=== PATIENT | male | born 1970 | race Caucasian/White ===

== ENCOUNTER 2021-01-10 17:18 | Outpatient (CLI) | payer OTHER, SELFPAY | END 2021-01-10 17:19 | disposition home or self-care (01) | LOC: ANHCOVIDVC 17:18 | PROVIDERS: PCP Family Medicine | DX: Z23 Encounter for immunization (principal) | CPT/HCPCS: 0001A; 91300 ==

== ENCOUNTER 2021-01-31 17:11 | Outpatient (CLI) | payer OTHER, SELFPAY | END 2021-01-31 17:12 | disposition home or self-care (01) | LOC: ANHCOVIDVC 17:11 | PROVIDERS: PCP Family Medicine | DX: Z23 Encounter for immunization (principal) | CPT/HCPCS: 0002A; 91300 ==

== ENCOUNTER 2024-06-07 08:24 | Emergency (ER) | payer OTHER, SELFPAY ==
[2024-06-07 08:42] VITALS: BP 122/85; PULSE 75; RESP 16; TEMP 36.2; O2SAT 99
--- NOTE | 2024-06-07 09:05 | ED.BACK ---
HPI - Back Pain/Injury General Chief Complaint: Back Pain/Injury Stated Complaint: muscle spams Time Seen by Provider: 06/07/24 09:05 Source: patient, RN notes reviewed and old records reviewed Mode of arrival: ambulatory Limitations: no limitations History of Present Illness HPI Narrative: patient presents with complaints of pain to right thoracic back area. He reports that pain began about 6 days ago. He wakened from sleep. He complains of muscle spasms. He reports pain is now radiating into the right arm. He denies any neck pain. He denies all injury and trauma. He does retain full range of motion, but states this makes pain worse. He has been taking ibuprofen intermittently with poor relief. States pain is now beginning to affect his sleep. Related Data Home Medications Medication Instructions Recorded Confirmed dapagliflozin propanediol 5 mg 5 mg PO DAILY 06/07/24 06/07/24 tablet (Farxiga) ipratropium 20 mcg-albuterol 100 1 puff inhalation PRN PRN 06/07/24 06/07/24 mcg/actuation mist for inhalation Shortness Of Breath Or Wheezing (Combivent Respimat) metformin 500 mg tablet 500 mg PO BID 06/07/24 06/07/24 montelukast 10 mg tablet 10 mg PO HS 06/07/24 06/07/24 triamterene 37.5 1 cap PO DAILY 06/07/24 06/07/24 mg-hydrochlorothiazide 25 mg capsule valsartan 80 mg tablet 80 mg PO DAILY 06/07/24 06/07/24 Allergies Allergy/AdvReac Type Severity Reaction Status Date / Time Sulfa (Sulfonamide AdvReac Mild Hives Verified 06/07/24 08:38 Antibiotics) LACTOSE INTOLERANT AdvReac Intermediate Gastrointestinal Uncoded 06/07/24 08:38 Upset Review of Systems Review of Systems: All systems reviewed & are unremarkable except as noted in HPI and below Constitutional: Constitutional: Reports no additional constitutional complaints ENT: Reports system reviewed and no additional complaints, except as documented Cardiovascular: Cardiovascular: Reports no additional cardiovascular complaints Respiratory: Respiratory: Reports no additional respiratory complaints Gastrointestinal: Gastrointestinal: Reports no additional gastrointestinal complaints Musculoskeletal: Musculoskeletal: Reports no additional musculoskeletal complaints and Reports as per HPI Neurologic: Denies Sensory deficit (Neuro), Denies tingling and Denies paresthesias Exam Const: General: cooperative, no acute distress, alert and awake Orientation/consciousness: oriented to person, oriented to place and oriented to time HENMT: Head: normal to inspection Neck: Neck: full ROM Resp: Effort & Inspection: normal respiratory effort and able to speak in complete sentences Auscultation: clear to auscultation bilaterally, no crackles, no rales, no rhonchi and no wheezes Cardio: Palpation: normal PMI Rate: regular rate Rhythm: regular rhythm Heart sounds: S1 normal heart sound present and S2 normal heart sound present Back/Spine/Pelvis: Cervical Spine: cervical ROM normal Thoracic/Lumbar Spine: pain with thoraco-lumbar ROM, paraspinal muscle tenderness on the right in the mid thoracic, No thoracic spinal tenderness and No lumbar spinal tenderness Other: Palpable muscle spasm right thoracic Neuro: General: oriented to person, oriented to place and oriented to time Cranial nerves: Yes CN's II-XII intact bilaterally Psych: Appearance: grossly normal Thought process: Normal thought process present Insight: Good insight present (Psych) Judgement: Good judgement present (Psych) Course Course Level of Care: Express Care Visit Vital Signs Vital signs: Vital Signs Temperature 97.1 F L 06/07/24 08:42 Pulse Rate 75 06/07/24 08:42 Respiratory Rate 16 06/07/24 08:42 Blood Pressure 122/85 06/07/24 08:42 Pulse Oximetry 99 06/07/24 08:42 Oxygen Delivery Room Air 06/07/24 08:42 Temperature 97.1 F L 06/07/24 08:42 Pulse Rate 75 06/07/24 08:42 Respiratory Rate 16 06/07/24 08:42 Blood Pressure 122/85 08
== END 2024-06-07 09:15 | disposition home or self-care (01) ==
PROVIDERS: Emergency Provider Nurse Practitioner Family; PCP Family Medicine
DX: M54.6 Pain in thoracic spine (principal)
CPT/HCPCS: 99213; G0463

== ENCOUNTER 2025-01-14 11:28 | Emergency (ER) | payer OTHER, SELFPAY ==
--- NOTE | ~2025-01-14 | XR_ITS ---
HISTORY: fall today/lateral pain COMPARISON: None TECHNIQUE: 3 views of the left wrist were performed. FINDINGS: No acute fracture is identified. The carpal arcs are intact. Mild radiocarpal joint space narrowing with sclerosis of the distal radius is present. The remaining visualized joint spaces are otherwise preserved. No significant soft tissue swelling is noted. No radiopaque foreign body is identified. IMPRESSION: Degenerative disease, without acute fracture. Reviewed, dictated and finalized at location A.
--- NOTE | ~2025-01-14 | XR_ITS ---
HISTORY: fall this morning/ulnar side pain COMPARISON: None TECHNIQUE: 3 views of the right ankle were performed FINDINGS: No acute fracture or dislocation. No significant soft tissue swelling. The ankle mortise is preserved. Bone mineralization is age advanced. Ossification of the insertion of the Achilles tendon is noted IMPRESSION: Degenerative disease without acute fracture. Reviewed, dictated and finalized at location A.
--- OUTSIDE RECORDS SUMMARY | 2025-01-14 11:40 | XMS_ITS | Data Portability ---
Author Organization [facility] LISANDROConnie Address [address] [place] [address] Assessment No assessment recorded. Plan of Treatment Reminders Order Date Submit Date Provider Last Modified By Organization Details Last Modified Time Details Appointments ANY 15 2024 03:00P Priti Badillo, DO Not available Not available Not available Lab BMP, serum or plasma 2024 025 [email or web address] [employer] [facility], [facility] [address], [address], 12/18/2024 16:59:05 microalbu min/creat inine, mass ratio, urine 2024 025 [email or web address] [employer] [facility], [facility] [address], [address], 12/18/2024 16:59:05 HbA1c (hemoglob in A1c), blood 2024 025 [email or web address] [employer] [facility], [facility] [address], [address], 12/18/2024 16:59:05 CBC w/ auto diff 2024 025 [email or web address] [employer] [facility], [facility] [address], [address], 12/25/2024 13:07:19 HbA1c (hemoglob in A1c), blood 2024 025 [email or web address] [employer] [facility], [facility] [address], [address], 12/08/2024 09:52:00 BMP, serum or plasma 2024 025 [email or web address] [facility], [address] [address], [place], [address], 12/08/2024 09:52:00 microalbu min/creat inine, mass ratio, urine 2024 025 [email or web address] [facility], [address] [address], [place], [address], 12/08/2024 09:52:00 CBC w/ auto diff 2023 025 CHAZ [facility], [address], [address], 12/06/2024 07:10:38 HbA1c (hemoglob in A1c), blood 2023 025 [facility], [address], [address], 12/06/2024 07:10:40 BMP, serum or plasma 2023 025 [facility], [address], [address], 12/06/2024 07:10:37 hepatic function panel, serum 2023 024 [email or web address] [facility], [address], [address], 09/05/2024 10:58:07 CBC w/ auto diff 2023 024 [email or web address] [facility], [address], [address], 09/05/2024 10:57:53 HbA1c (hemoglob in A1c), blood 2023 [facility], [address], [address], 08/17/2024 10:24:44 BMP, serum or plasma 2023 024 CHAZ [facility], [address], [address], 08/17/2024 10:24:44 LOLLY (antinucl ear antibodie s) screen, ifa, serum 2023 024 [id number] [facility], [facility] [address], [address], 09/05/2024 10:57:21 rf (rheumato id factor), serum 2023 024 [email or web address] [facility], [facility] [address], [address], 09/05/2024 10:57:31 erythrocy te sedimenta tion rate by westergre n method 2023 024 [id number] [facility], [facility] [address], [address], 09/05/2024 10:58:17 uric acid, serum or plasma 2023 024 [id number] [facility], [facility] [address], [address], 09/05/2024 10:57:39 BMP, serum or plasma 2023 024 [facility], [facility] [address], [address], 04/23/2024 11:04:33 CBC 2023 024 [facility], [facility] [address], [address], 04/23/2024 11:04:34 lipid panel, serum 2023 024 [facility], [address] [facility] [address], [place], [address], 04/23/2024 11:04:32 TSH + free T4, serum 2023 024 [facility], [address] [facility] [address], [place], [address], 04/23/2024 11:04:33 hepatic function panel, serum 2023 024 [facility], [address] [facility] [address], [place], [address], 04/23/2024 11:04:34 vitamin D, 25-hydrox y, total, serum 2023 024 [facility], [address] [facility] [address], [place], [address], 04/23/2024 11:04:36 vitamin B12, serum 2023 024 [facility], [address] [facility] [address], [place], [address], 04/23/2024 11:04:35 testoster one, total, serum 2023 024 [facility], [address] [facility] [address], [place], [address], 04/23/2024 11:04:36 PSA, serum or plasma 2023 024 [facility], [address] [facility] [address], [place], [address], 04/23/2024 11:04:35 Referral gastroent erologist referral - colonosco py 2024 025 CHAZELDON Stokes MD, [address], [place], [address], 01/11/2025 12:10:18 Procedures None recorded. Surgeries None recorded. Imaging MRI, lumbar spine, w/wo contrast - pre and post contrast fat saturated sequence 2024 025 [facility] Patient Access Centralized Scheduling, Centralized Scheduling, [address] [facility] , [place], [address], 01/04/2025 12:02:22 XR, elbow, 3 or more view - right [address] [facility], [address], [place], [address], 01/05/2025 12:23:00 XR, chest, 2 view 2023 024 [facility], [address], [place], [address], 09/13/2024 21:17:11 electroca rdiogram, routine ECG, 12 leads min 2023 024 [facility], [address], [place], [address], 09/11/2024 20:47:11 CT, coronary calcium score [address] Scheduling, [address] [facility] [address], [place], [address], 09/11/2024 16:25:15 XR, lumbar spine 2023 024 [facility], [address], [place], [address], 09/12/2024 13:49:41 Medication Orders prednison e 20 mg tablet 2024 025 [facility]/Pharmacy #2713, [address], [place], [address], 12/18/2024 15:32:42 rosuvasta tin 5 mg tablet 2023 024 [facility]/Pharmacy #2713, [address], [place], [address], 08/14/2024 08:06:36 rosuvasta tin 5 mg tablet 2023 024 [facility], [address] [place] [address], [address], 08/14/2024 08:06:36 Combivent Respimat 20 mcg-100 mcg/actua tion solution for inhalatio n [address]/Pharmacy #2713, [address] , [place], [address], 03/29/2024 18:34:[address] 10 mg tablet 2023 024 [facility]Ph[facility]acy #2713, [address], [place], [address], 04/28/2024 03:23:[address] 10 mg tablet 2023 024 [email or web address], [address] [place] [address], [address], 03/29/2024 18:34:02 triamtere ne 37.5 mg-hydroc hlorothia zide 25 mg capsule 2023 024 [facility]/Ph[facility]acy #2713, [address], [place], [address], 04/28/2024 03:23:06 valsartan 80 mg tablet 2023 024 [facility]acy #2713, [address] , [place], [address], 04/28/2024 03:22:40 triamtere ne 37.5 mg-hydroc hlorothia zide 25 mg capsule 2023 024 [email or web address] [facility], [address] [place] [address], [address], 03/29/2024 18:34:02 valsartan 80 mg tablet 2023 024 [email or web address] [facility], [address] [place] [address], [address], 03/29/2024 18:34:02 Farxiga 5 mg tablet 2023 024 [email or web address] [facility], [address], [place], [address], 03/29/2024 18:34:02 metformin 500 mg tablet 2023 024 [facility]/Pharmacy #2713, [address], [place], [address], 04/28/2024 03:23:58 Farxiga 5 mg tablet 2023 024 [email or web address] [facility], [address] [place] [address], [address], 03/29/2024 18:34:02 metformin 500 mg tablet 2023 024 [facility], [address] [place] [address], [address], 03/29/2024 18:34:02 Patient TargetsNo targets recorded. Patient Instructions Encounter Date Encounter Id Patient Instructions Last Modified By Organization Details Last Modified Time 03/29/2024 [id number] A healthy lifestyle: care instructions [email or web address] Not available 03/29/2024 16:52:40 11/09/2024 [id number] A healthy lifestyle: care instructions [email or web address] Not available 11/09/2024 18:34:40 12/18/2024 [id number] A healthy lifestyle: care instructions [email or web address] Not available 12/18/2024 16:59:05 Reason for Referral [employer] Referral for Screening for malignant neoplasm of colon colonoscopy Referring Physician: Bennie Badillo, Family Medicine, Encounter Date: 12/18/2024 Results Created Date Observation Date Name Description Value Unit Range Abnormal Flag Note LastModifiedBy Organization Detail LastModifiedTime 04/18/20 24 04/23/2024 LIPID PANEL W/REF L DIREC T LDL, CARDI O IQ(R) cholesterol, total 136 mg/dL <200 Not Available [employer] [address] [address] [place], [address], 04/23/2024 11:04:32 04/18/20 24 04/23/2024 LIPID PANEL W/REF L DIREC T LDL, CARDI O IQ(R) HDL cholesterol 34 mg/dL >39 low Not Available [facility] [address] [address] [place], [address], 04/23/2024 11:04:32 04/18/20 24 04/23/2024 LIPID PANEL W/REF L DIREC T LDL, CARDI O IQ(R) triglyceride s 400 mg/dL <150 high If a non fasti ng speci men was colle cted, consi sharita repea t trigl yceri de testi ng on a fasti ng speci men if clini aiden indic ated. Chacorta vazquez et al. J of Clin. Lipid ol. 215; 9:129 -169. Not Available [facility] [facility] [address] [place], [address], 04/23/2024 11:04:32 04/18/20 24 04/23/2024 LIPID PANEL W/REF L DIREC T LDL, CARDI O IQ(R) LDL-choleste rol 62 mg/dL _(romana c) <100 LDL Pattie stero l not calcu lated . Trigl yceri de level s great er than 400 mg/dL inval idate calcu lated LDL resul ts. Jamarcus able range <100 mg/dL for prima ry preve ntion ; <70 mg/dL for patie nts with CHD or diabe tic patie nts with >= 2 CHD risk facto rs. LDL-C is now calcu lated using the [facility] Filao calcu latio n, which is a valid ated novel metho d provi ding petty r accur acy than the Fried margarita equat ion in the estim ation of LDL-C . Grace n SS et al. CRISTIN. 2013; 310(1 9): 2060- 2067 (http ://ed [place] [employer]/f aq/FA Q164) LDL-C is now calcu lated using the [employer] calcu latio n, which is a valid ated novel metho d provi ding petty r accur acy than the Fried margarita equat ion in the estim ation of LDL-C . Grace n SS et al. CRISTIN. 2013; 310(1 9): 2060- 2067 (http ://ed PublicVine on.[employer]Shield. com/f aq/FA Q164) Not Available [employer] [facility] [address] [place], [address], 04/23/2024 11:04:32 04/18/20 24 04/23/2024 LIPID PANEL W/REF L DIREC T LDL, CARDI O IQ(R) chol/HDLC ratio 4.0 calc <5.0 Not Available [employer] [facility] [address] [place], [address], 04/23/2024 11:04:32 04/18/20 24 04/23/2024 LIPID PANEL W/REF L DIREC T LDL, CARDI O IQ(R) non HDL cholesterol 102 mg/dL _(romana c) <130 For patie nts with diabe gina plus 1 major ASCVD risk facto r, treat ing to a non-H DL-C goal of <100 mg/dL (LDL- C of <70 mg/dL ) is consi dered a thera peuti c optio n. For patie nts with diabe gina plus 1 major ASCVD risk facto r, treat ing to a non-H DL-C goal of <100 mg/dL (LDL- C of <70 mg/dL ) is consi dered a thera peuti c optio n. Not Available [facility] [address], [address], 04/23/2024 11:04:32 04/18/20 24 04/23/2024 TSH+F REE T4 TSH 1.67 mIU/L 0.40-4 .50 normal Not Available [facility] [address], [address], 04/23/2024 11:04:33 04/18/20 24 04/23/2024 TSH+F REE T4 T4, free 1.1 NG/dL 0.8-1. 8 normal Not Available [facility] [address], [address], 04/23/2024 11:04:33 04/18/20 24 04/23/2024 BASIC METAB OLIC PANEL glucose 207 mg/dL 65-99 high Fasti ng refer ence inter emily For someo ne witho ut known diabe gina, a gluco se value >125 mg/dL indic ates that they may have diabe gina and this shoul d be confi rmed with a follo w-up test. Not Available [facility] [address], [address], 04/23/2024 11:04:33 04/18/20 24 04/23/2024 BASIC METAB OLIC PANEL urea nitrogen (BUN) 21 mg/dL 7-25 normal Not Available [facility] [address], [address], 04/23/2024 11:04:33 04/18/20 24 04/23/2024 BASIC METAB OLIC PANEL creatinine 0.85 mg/dL 0.70-1 .30 normal Not Available [facility] [address] [place], [address], 04/23/2024 11:04:33 04/18/20 24 04/23/2024 BASIC METAB OLIC PANEL eGFR 103 mL/mi n/1.7 3m2 > or = 60 normal Not Available [address] [address] [place], [address], 04/23/2024 11:04:33 04/18/20 24 04/23/2024 BASIC METAB OLIC PANEL BUN/creatini ne ratio SEE NOTE: (calc ) 6-22 Not Repor katina: BUN and Creat inine are withi n refer ence range . Not Available [address] [address] [place], [address], 04/23/2024 11:04:33 04/18/20 24 04/23/2024 BASIC METAB OLIC PANEL sodium 145 mmol/ L 135-14 6 normal Not Available [address] [address] [place], [address], 04/23/2024 11:04:33 04/18/20 24 04/23/2024 BASIC METAB OLIC PANEL potassium 4.5 mmol/ L 3.5-5. 3 normal Not Available [address] [address] [place], [address], 04/23/2024 11:04:33 04/18/20 24 04/23/2024 BASIC METAB OLIC PANEL chloride 109 mmol/ L 98-110 normal Not Available [address] [address] [place], [address], 04/23/2024 11:04:33 04/18/20 24 04/23/2024 BASIC METAB OLIC PANEL carbon dioxide 16 mmol/ L 20-32 low Not Available [address] [address] [place], [address], 04/23/2024 11:04:33 04/18/20 24 04/23/2024 BASIC METAB OLIC PANEL calcium 10.3 mg/dL 8.6-10 .3 normal Not Available [address], [address], 04/23/2024 11:04:33 04/18/20 24 04/23/2024 HEPAT IC FUNCT ION PANEL protein, total 7.2 g/dL 6.1-8. 1 normal Not Available [address], [address], 04/23/2024 11:04:34 04/18/20 24 04/23/2024 HEPAT IC FUNCT ION PANEL albumin 4.8 g/dL 3.6-5. 1 normal Not Available [address], [address], 04/23/2024 11:04:34 04/18/20 24 04/23/2024 HEPAT IC FUNCT ION PANEL globulin 2.4 g/dL_ (calc ) 1.9-3. 7 normal Not Available [address], [address], 04/23/2024 11:04:34 04/18/20 24 04/23/2024 HEPAT IC FUNCT ION PANEL albumin/glob ulin ratio 2.0 (calc ) 1.0-2. 5 normal Not Available [address], [address], 04/23/2024 11:04:34 04/18/20 24 04/23/2024 HEPAT IC FUNCT ION PANEL bilirubin, total 0.7 mg/dL 0.2-1. 2 normal Not Available [address], [address], 04/23/2024 11:04:34 04/18/20 24 04/23/2024 HEPAT IC FUNCT ION PANEL bilirubin, direct 0.1 mg/dL < or = 0.2 normal Not Available [address] [place], [address], 04/23/2024 11:04:34 04/18/20 24 04/23/2024 HEPAT IC FUNCT ION PANEL bilirubin, indirect 0.6 mg/dL _(romana c) 0.2-1. 2 normal Not Available [address], [address], 04/23/2024 11:04:34 04/18/20 24 04/23/2024 HEPAT IC FUNCT ION PANEL alkaline phosphatase 50 U/L 35-144 normal Not Available [facility] [address], [address], 04/23/2024 11:04:34 04/18/20 24 04/23/2024 HEPAT IC FUNCT ION PANEL AST 20 U/L 10-35 normal Not Available [address], [address], 04/23/2024 11:04:34 04/18/20 24 04/23/2024 HEPAT IC FUNCT ION PANEL ALT 27 U/L 9-46 normal Not Available [address], [address], 04/23/2024 11:04:34 04/18/20 24 04/23/2024 CBC (H/H, RBC, INDIC ES, WBC, PLT) white blood cell count 7.4 thous and/u L 3.8-10 .8 normal Not Available [address], [address], 04/23/2024 11:04:34 04/18/20 24 04/23/2024 CBC (H/H, RBC, INDIC ES, WBC, PLT) red blood cell count 5.66 melanie on/uL 4.20-5 .80 normal Not Available [address], [address], 04/23/2024 11:04:34 04/18/20 24 04/23/2024 CBC (H/H, RBC, INDIC ES, WBC, PLT) hemoglobin 16.5 g/dL 13.2-1 7.1 normal Not Available [address], [address], 04/23/2024 11:04:34 04/18/20 24 04/23/2024 CBC (H/H, RBC, INDIC ES, WBC, PLT) hematocrit 49.6 % 38.5-5 0.0 normal Not Available [address], [address], 04/23/2024 11:04:34 04/18/20 24 04/23/2024 CBC (H/H, RBC, INDIC ES, WBC, PLT) MCV 87.6 fL 80.0-1 00.0 normal Not Available [address], [address], 04/23/2024 11:04:34 04/18/20 24 04/23/2024 CBC (H/H, RBC, INDIC ES, WBC, PLT) MCH 29.2 pg 27.0-3 3.0 normal Not Available [address], [address], 04/23/2024 11:04:34 04/18/20 24 04/23/2024 CBC (H/H, RBC, INDIC ES, WBC, PLT) MCHC 33.3 g/dL 32.0-3 6.0 normal Not Available [address], [address], 04/23/2024 11:04:34 04/18/20 24 04/23/2024 CBC (H/H, RBC, INDIC ES, WBC, PLT) RDW 13.4 % 11.0-1 5.0 normal Not Available [address], [address], 04/23/2024 11:04:34 04/18/20 24 04/23/2024 CBC (H/H, RBC, INDIC ES, WBC, PLT) platelet count 234 thous and/u L 140-40 0 normal Not Available [facility] [address] [address] [place], [address], 04/23/2024 11:04:34 04/18/20 24 04/23/2024 CBC (H/H, RBC, INDIC ES, WBC, PLT) MPV 11.6 fL 7.5-12 .5 normal Not Available [facility] [address] [address] [place], [address], 04/23/2024 11:04:34 04/18/20 24 04/23/2024 VITAM IN B12 vitamin B12 698 pg/mL 200-11 00 normal Not Available [facility] [address], [address], 04/23/2024 11:04:35 04/18/20 24 04/23/2024 PSA, TOTAL PSA, total 0.44 NG/mL < or = 4.00 normal The total PSA value from this assay syste m is stand ardiz ed again st the WHO stand anders. The test resul t will be appro ximat edwin 20% lower when tl red to the equim olar- stand ardiz ed total PSA (Lewis man Coult er). Tl rison of seria l PSA resul ts shoul d be inter prete d with this fact in mind. This test was perfo rmed using the Sieme ns chemi lumin escen t metho d. Value s obtai tayler from diffe rent assay metho ds canno t be used inter seo eably . PSA level s, regar dless of value , shoul d not be inter prete d as absol muckleshoot evide nce of the prese nce or absen ce of disea se. Not Available [facility] [address] [address] [place], [address], 04/23/2024 11:04:35 04/18/20 24 04/23/2024 VITAM IN D,25- OH,TO ESDRAS,I A vitamin D,25-oh,tota l,ia 13 NG/mL 30-100 low Vitam in D Statu s 25-OH Vitam in D: Defic iency : <20 ng/mL Insuf ficie ncy: 20 - 29 ng/mL Optim al: > or = 30 ng/mL For 25-OH Vitam in D testi ng on patie nts on D2-crump pplem entat ion and patie nts for whom quant itati on of D2 and D3 fract ions is requi red, the [facility] Ass[facility] eD(TM ) 25-OH VIT D, (D2,D 3), LC/MS /MS is recom laverne d: order code 40296 (raúl ents >2yrs ). See Note 1 Note 1 For addit ional infor patricia may e refer to http: //[facility] women[facility] hospitalmounika sarmiento.Narciso stDia gnost ics.c om/fa q/FAQ 199 (This link is being provi ded for infor matio nal/ educa violeta l purpo ses only. ) Not Available [facility] [address] [place], [address], 04/23/2024 11:04:36 04/18/20 24 04/23/2024 TESTO STERO NE, TOTAL , MS testosterone , total, MS 377 NG/dL 250-11 00 Men with clini aiden signi fican t hypog onada l sympt oms and testo stero ne value s repea tedly in the range of the 200-3 00 ng/dL or less, may benef it from testo stero ne treat ment after adequ ate risk and benef its couns eling . For addit ional infor patricia may e refer to https ://ed ucati on.qu marguerite wisdomWhitepages. com/f aq/To Alon nelson LCMSM S (This link is being provi ded for infor matio nal/e ducat ional purpo ses only. ) (Note ) This test was devel oped and its ita tical perfo rmanc e raj cteri stics have been deter mined by [employer]. It has not been clear ed or appro morgan by the FDA. This assay has been valid ated pursu ant to the CLIA regul ation s and is used for clini romana purpo ses. F maxine cope n [address] [facility] [address] [place] [address] [phone] Daryn Underwood MD, PhD Not Available [facility] [address] [address] [place], [address], 04/23/2024 11:04:36 08/16/2008/17/2024 LIPID PANEL , STAND ANDERS cholesterol, total 127 mg/dL <200 normal Not Available [facility] [address] [address] [place], [address], 08/17/2024 08:40:11 08/16/2008/17/2024 LIPID PANEL , STAND ANDERS HDL cholesterol 34 mg/dL > or = 40 low Not Available [employer] [facility] [address] [address] [place], [address], 08/17/2024 08:40:11 08/16/2008/17/2024 LIPID PANEL , STAND ANDERS triglyceride s 394 mg/dL <150 high If a non-f astin g speci men was colle cted, consi sharita repea t trigl yceri de testi ng on a fasti ng speci men if clini aiden indic ated. Chacorta vazquez et al. J. of Clin. Lipid ol. 2015; 9:129 -169. Not Available [facility] [address] [address] [place], [address], 08/17/2024 08:40:11 08/16/2008/17/2024 LIPID PANEL , STAND ANDERS LDL-choleste rol 52 mg/dL _(romana c) normal Refer ence range : <100 Jamarcus able range <100 mg/dL for prima ry preve ntion ; <70 mg/dL for patie nts with CHD or diabe tic patie nts with > or = 2 CHD risk facto rs. LDL-C is now calcu lated using the Grace n-Hop kins anibalu raiza n, which is a valid ated novel toño hudson than the Fried margarita saurabhat ion in the estim ation of LDL-C . Grace sarmiento SS et al. CRISTIN. 2013; 310(1 9): 2061- 2068 (http ://ed ucati on.Qu estDi Adocias. com/f aq/FA Q164) Not Available [facility] [address] [address] [place], [address], 08/17/2024 08:40:11 08/16/2008/17/2024 LIPID PANEL , STAND ANDERS chol/HDLC ratio 3.7 (calc ) <5.0 normal Not Available [facility] [address] [address] [address], [place], [address], 08/17/2024 08:40:11 08/16/2008/17/2024 LIPID PANEL , STAND ANDERS non HDL cholesterol 93 mg/dL _(romana c) <130 normal For patie nts with diabe gina plus 1 major ASCVD risk facto r, treat ing to a non-H DL-C goal of <100 mg/dL (LDL- C of <70 mg/dL ) is consi dered a aleksa cinthya c optio n. Not Available [facility] [address] [address] [address] , [place], [address], 08/17/2024 08:40:11 08/16/2008/17/2024 BASIC METAB OLIC PANEL glucose 194 mg/dL 65-99 high Fasti ng refer ence inter emily For someo ne witho ut known diabe gina, a gluco se value >125 mg/dL indic ates that they may have diabe gina and this shoul d be confi rmed with a follo w-up test. Not Available [facility] [address] [address], [place], [address], 08/17/2024 08:40:13 08/16/2008/17/2024 BASIC METAB OLIC PANEL urea nitrogen (BUN) 21 mg/dL 7-25 normal Not Available [address] [address] [place], [address], 08/17/2024 08:40:13 08/16/2008/17/2024 BASIC METAB OLIC PANEL creatinine 0.73 mg/dL 0.70-1 .30 normal Not Available [facility] [address], [address], 08/17/2024 08:40:13 08/16/2008/17/2024 BASIC METAB OLIC PANEL eGFR 107 mL/mi n/1.7 3m2 > or = 60 normal Not Available [facility] [address] [address] [place], [address], 08/17/2024 08:40:13 08/16/2008/17/2024 BASIC METAB OLIC PANEL BUN/creatini ne ratio SEE NOTE: (calc ) 6-22 Not Repor katina: BUN and Creat inine are withi n refer ence range . Not Available [facility] [address] [address] [place], [address], 08/17/2024 08:40:13 08/16/2008/17/2024 BASIC METAB OLIC PANEL sodium 139 mmol/ L 135-14 6 normal Not Available [facility] [address] [address] [place], [address], 08/17/2024 08:40:13 08/16/2008/17/2024 BASIC METAB OLIC PANEL potassium 4.0 mmol/ L 3.5-5. 3 normal Not Available [facility] [address], [address], 08/17/2024 08:40:13 08/16/2008/17/2024 BASIC METAB OLIC PANEL chloride 104 mmol/ L 98-110 normal Not Available [facility] [address] [address] [place], [address], 08/17/2024 08:40:13 08/16/20 24 08/17/2024 BASIC METAB OLIC PANEL carbon dioxide 24 mmol/ L 20-32 normal Not Available [facility] [address] , [place], [address], 08/17/2024 08:40:13 08/16/2008/17/2024 BASIC METAB OLIC PANEL calcium 10.1 mg/dL 8.6-10 .3 normal Not Available [facility] [address] , [place], [address], 08/17/2024 08:40:13 08/16/2008/17/2024 HEMOG LOBIN A1C hemoglobin A1C 8.2 %_of_ total _HGB <5.7 high For someo ne witho ut known diabe gina, a hemog lobin A1c value of 6.5% or great er indic ates that they may have diabe gina and this shoul d be confi rmed with a follo w-up test. For someo ne with known diabe gina, a value <7% indic ates that their diabe gina is well contr olled and a value great er than or equal to 7% indic ates subop timal contr ol. A1c targe ts shoul d be indiv idual ized based on durat ion of diabe gina, age, comor bid condi tions , and other consi derat ions. Curre ntly, no conse nsus exist s regar ding use of hemog lobin A1c for diagn osis of diabe igna for child william. Not Available [facility] [address] , [place], [address], 08/17/2024 08:40:14 12/05/19 25 12/06/2024 BASIC METAB OLIC PANEL glucose 145 mg/dL 65-99 high Fasti ng refer ence inter emily For someo ne witho ut known diabe gina, a gluco se value >125 mg/dL indic ates that they may have diabe gina and this shoul d be confi rmed with a follo w-up test. Not Available [facility] [address], [place], [address], 12/06/2024 07:10:37 12/05/19 25 12/06/2024 BASIC METAB OLIC PANEL urea nitrogen (BUN) 21 mg/dL 7-25 normal Not Available [facility] [place] [address] [address] [place], [address], 12/06/2024 07:10:37 12/05/19 25 12/06/2024 BASIC METAB OLIC PANEL creatinine 0.78 mg/dL 0.70-1 .30 normal Not Available [facility] [address] [address] [place], [address], 12/06/2024 07:10:37 12/05/19 25 12/06/2024 BASIC METAB OLIC PANEL eGFR 105 mL/mi n/1.7 3m2 > or = 60 normal Not Available [facility] [place] [address], [place], [address], 12/06/2024 07:10:37 12/05/1912/06/2024 BASIC METAB OLIC PANEL BUN/creatini ne ratio SEE NOTE: (calc ) 6-22 Not Repor katina: BUN and Creat inine are withi n refer ence range . Not Available [facility] [place] [address] [place], [address], 12/06/2024 07:10:37 12/05/19 25 12/06/2024 BASIC METAB OLIC PANEL sodium 139 mmol/ L 135-14 6 normal Not Available [facility] [place] [address] [place], [address], 12/06/2024 07:10:37 12/05/19 25 12/06/2024 BASIC METAB OLIC PANEL potassium 4.1 mmol/ L 3.5-5. 3 normal Not Available [facility] [address] [place], [address], 12/06/2024 07:10:37 12/05/19 25 12/06/2024 BASIC METAB OLIC PANEL chloride 101 mmol/ L 98-110 normal Not Available [address], [address], 12/06/2024 07:10:37 12/05/19 25 12/06/2024 BASIC METAB OLIC PANEL carbon dioxide 25 mmol/ L 20-32 normal Not Available [address], [address], 12/06/2024 07:10:37 12/05/19 25 12/06/2024 BASIC METAB OLIC PANEL calcium 10.4 mg/dL 8.6-10 .3 high Not Available [address], [address], 12/06/2024 07:10:37 12/05/19 25 12/06/2024 CBC (INCL UDES DIFF/ PLT) white blood cell count 6.7 thous and/u L 3.8-10 .8 normal Not Available [address], [address], 12/06/2024 07:10:38 12/05/19 25 12/06/2024 CBC (INCL UDES DIFF/ PLT) red blood cell count 5.81 melanie on/uL 4.20-5 .80 high Not Available [address], [address], 12/06/2024 07:10:38 12/05/19 25 12/06/2024 CBC (INCL UDES DIFF/ PLT) hemoglobin 17.0 g/dL 13.2-1 7.1 normal Not Available [address], [address], 12/06/2024 07:10:38 12/05/19 25 12/06/2024 CBC (INCL UDES DIFF/ PLT) hematocrit 51.7 % 38.5-5 0.0 high Not Available [facility] [address], [address], 12/06/2024 07:10:38 12/05/19 25 12/06/2024 CBC (INCL UDES DIFF/ PLT) MCV 89.0 fL 80.0-1 00.0 normal Not Available [facility] [address], [address], 12/06/2024 07:10:38 12/05/1912/06/2024 CBC (INCL UDES DIFF/ PLT) MCH 29.3 pg 27.0-3 3.0 normal Not Available [facility] [address], [address], 12/06/2024 07:10:38 12/05/19 25 12/06/2024 CBC (INCL UDES DIFF/ PLT) MCHC 32.9 g/dL 32.0-3 6.0 normal For adult s, a sligh t decre ase in the calcu lated MCHC value (in the range of 30 to 32 g/dL) is most likel y not clini aiden signi colt t; kenneth er, it shoul d be inter prete d with cauti on in [facility] with other red cell karolyn eters and the patie nt's clini romana condi tion. Not Available [facility] [address], [address], 12/06/2024 07:10:38 12/05/19 25 12/06/2024 CBC (INCL UDES DIFF/ PLT) RDW 13.3 % 11.0-1 5.0 normal Not Available [facility] [address], [address], 12/06/2024 07:10:38 12/05/19 25 12/06/2024 CBC (INCL UDES DIFF/ PLT) platelet count 244 thous and/u L 140-40 0 normal Not Available [facility] [address], [address], 12/06/2024 07:10:38 12/05/19 25 12/06/2024 CBC (INCL UDES DIFF/ PLT) MPV 11.9 fL 7.5-12 .5 normal Not Available [address], [address], 12/06/2024 07:10:38 12/05/19 25 12/06/2024 CBC (INCL UDES DIFF/ PLT) absolute neutrophils 3243 cells /uL 1500-7 800 normal Not Available [address], [address], 12/06/2024 07:10:38 12/05/19 25 12/06/2024 CBC (INCL UDES DIFF/ PLT) absolute lymphocytes 2667 cells /uL 850-39 00 normal Not Available [address], [address], 12/06/2024 07:10:38 12/05/19 25 12/06/2024 CBC (INCL UDES DIFF/ PLT) absolute monocytes 543 cells /uL 200-95 0 normal Not Available [address], [address], 12/06/2024 07:10:38 12/05/19 25 12/06/2024 CBC (INCL UDES DIFF/ PLT) absolute eosinophils 161 cells /uL 15-500 normal Not Available [address], [address], 12/06/2024 07:10:38 12/05/19 25 12/06/2024 CBC (INCL UDES DIFF/ PLT) absolute basophils 87 cells /uL 0-200 normal Not Available [address], [address], 12/06/2024 07:10:38 12/05/19 25 12/06/2024 CBC (INCL UDES DIFF/ PLT) neutrophils 48.4 % normal Not Available [address] [place], [address], 12/06/2024 07:10:38 12/05/19 25 12/06/2024 CBC (INCL UDES DIFF/ PLT) lymphocytes 39.8 % normal Not Available [facility] [address], [address], 12/06/2024 07:10:38 12/05/1912/06/2024 CBC (INCL UDES DIFF/ PLT) monocytes 8.1 % normal Not Available [facility] [address], [address], 12/06/2024 07:10:38 12/05/1912/06/2024 CBC (INCL UDES DIFF/ PLT) eosinophils 2.4 % normal Not Available [facility] [address], [address], 12/06/2024 07:10:38 12/05/19 25 12/06/2024 CBC (INCL UDES DIFF/ PLT) basophils 1.3 % normal Not Available [facility] [address], [address], 12/06/2024 07:10:38 12/05/1912/06/2024 HEMOG LOBIN A1C hemoglobin A1C 7.2 %_of_ total _HGB <5.7 high For someo ne witho ut known diabe gina, a hemog lobin A1c value of 6.5% or great er indic ates that they may have diabe gina and this shoul d be confi rmed with a follo w-up test. For someo ne with known diabe gina, a value <7% indic ates that their diabe gina is well contr olled and a value great er than or equal to 7% indic ates subop timal contr ol. A1c targe ts shoul d be indiv idual ized based on durat ion of diabe gina, age, comor bid condi tions , and other consi derat ions. Curre ntly, no conse nsus exist s regar ding use of hemog lobin A1c for diagn osis of diabe gina for child william. Not Available [facility] [address] [place], [address], 12/06/2024 07:10:39 09/11/20 24 09/11/2024 elect enriqueta hernadezgr am, routi ne ECG, 12 leads min No observ ation record ed. [facility] [address] [place], [address], 10/26/2024 14:47:41 09/12/20 24 09/12/2024 XR, lumba r spine No observ ation record ed. [address], [address], 10/26/2024 14:47:41 09/13/20 24 09/13/2024 XR, chest , 2 view No observ ation record ed. [address], [address], 10/19/2024 10:12:53 12/11/19 25 12/08/2024 MRI, lumba r spine , w/o contr ast No observ ation record ed. [facility] [address], [address], 12/18/2024 15:33:06 01/05/20 25 01/04/2025 MRI, lumba r spine , w/wo contr ast No observ ation record ed. [facility] [address], [address], 01/11/2025 17:12:24 Result Notes None recorded. Problems Name Problem SNOMED Code Status Onset Date Resolution Date Notes Provider Name and Address Organization Details Recorded Time Chronic low back pain 306354377 Active 2023 Bennie Badillo DO Attn: Torriein g,[address] [facility], [place], [address], [place] - [facility] 4 16:53:36 Dyslipidemi a 626696263 Active 2023 Bennie Badillo DO Attn: Torrielukasz jansen,[address] [place], [place], [address] [place] [address], [place] [facility] 4 16:53:37 Chronic insomnia 758174779 Active 2023 Bennie Badillo DO Attn: Kathy inderjit,[address] [place], [place], [address] [place] [address], [place] [facility] 4 16:53:39 Seasonal allergy 745354346 Active 2023 Bennie Badillo DO Attn: Kathy inderjit,[address] [place], [place], [address] [place] [address], [place] [facility] 4 16:53:40 Type 2 diabetes mellitus without complicatio n 802776650 Active 2023 Bennie Badillo DO Attn: Kathy inderjit,[address] [place], [address] [place] [address], [place] [facility] 4 16:53:41 Obesity 385173097 Active 2023 Bennie Badillo DO Attn: Kathy inderjit,[address] [place], [address] [place] [address], [place] [facility] 4 16:53:43 Obstructive sleep apnea syndrome 87688578 Active 2023 Bennie Badillo DO Attn: Kathy inderjit,[address] [place], [place], [address] [place] [address], [place] [facility] 4 16:53:44 Essential hypertensio n 61382193 Active 2023 Bennie Badillo DO Attn: Kathy jansen,[address] [place], [address] [place] [address], [place] [facility] 4 16:53:45 Multiple joint pain 75633289 Active 2023 Bennie Badillo DO Attn: Kathy jansen,[address] [place], [address], [place] [facility] 4 08:16:52 Pain of right elbow joint 6553074793790 9109 Active 2024 Bennie Badillo DO Attn: Kathy jansen,[address], [place], [address], [place] [facility] 5 16:31:40 Problem Notes None recorded. Procedures Surgical History None recorded. Imaging Results Imaging Date Name Status LastModified by Organiz ation Details LastModified Time 09/11/2024 electrocardio gram, routine ECG, 12 leads min completed [facility] [address] [place], [address], 10/26/2024 14:47:41 09/12/2024 XR, lumbar spine completed [address], [address], 10/26/2024 14:47:41 09/13/2024 XR, chest, 2 view completed [address], [address], 10/19/2024 10:12:53 12/08/2024 MRI, lumbar spine, w/o contrast completed [facility] [address] [place], [address], 12/18/2024 15:33:06 01/04/2025 MRI, lumbar spine, w/wo contrast active [facility] ([facility] [address] [place], [address], 01/11/2025 17:12:24 Procedure Notes None recorded. Medical Equipment None Reported. Allergies Allergen ID Allergen Name Allergen Category Reaction Reaction Severity Criticality Documentation Date Start Date Code Code System Note Provider Name and Address Organization Details Recorded Time 933903 Galactose -alpha-1, 3 galactose (substanc e) food,medi cation Not available Not available Not available 03/29/2024 47365 8006 SNOMED Not Available Not Available Not Available 387297 Substance with sulfonami de structure and antibacte rial mechanism of action (substanc e) medicatio n rash mild high 09/11/2024 47524 8003 SNOMED Not Available Not Available Not Available 248589 cow milk allergeni c extract food,medi cation Not available Not available low 12/18/20242018 01542 5 RxNorm GI Upset unrec ogniz ed react ion (text : Stoma ch upset , code: 84561 [id number]) (from exter nal sourc e) Not Available Not Available Not Available Medications Name Sig Start Date Stop Date Status Note LastModified by Organization Details LastModified Time cyclobenzap rine 10 mg tablet TAKE 1 TABLET BY MOUTH TWICE A DAY NEEDED FOR MUSCLE SPASMS 03/29 completed Not Available Not Available Not Available methocarbam ol 500 mg tablet TAKE 1 TABLET BY MOUTH THREE TIMES A DAY active Not Available Not Available No t Available metformin 500 mg tablet TAKE 1 TABLET BY MOUTH TWICE A DAY active Not Available Not Available No t Available prednisone 20 mg tablet TAKE 1 TABLET BY MOUTH EVERY DAY FOR 5 DAYS 12/18 completed Not Available Not Available Not Available valsartan 80 mg tablet TAKE 1 TABLET BY MOUTH EVERY DAY active Not Available Not Available No t Available triamterene 37.5 mg-hydrochl orothiazide 25 mg capsule TAKE 1 CAPSULE BY MOUTH EVERY DAY active Not Available Not Available No t Available baclofen 10 mg tablet TAKE 1 TABLET BY MOUTH THREE TIMES A DAY NEEDED FOR MUSCLE SPASMS 03/29 completed Not Available Not Available Not Available prednisone 50 mg tablet TAKE 1 TABLET BY MOUTH EVERY DAY 12/18 completed Not Available Not Available Not Available montelukast 10 mg tablet TAKE 1 TABLET BY MOUTH EVERY DAY active Not Available Not Available No t Available Longs Adult Low Strength ASA 81 mg tablet,dorian yed release Take 1 tablet every day by oral route. active Not Available Not Available No t Available naproxen 500 mg tablet TAKE 1 TABLET BY MOUTH TWICE A DAY WITH MEALS 03/29 completed Not Available Not Available Not Available rosuvastati n 5 mg tablet TAKE 1 TABLET BY MOUTH EVERY DAY FOR 30 DAYS 08/14 completed Not Available Not Available Not Available rosuvastati n 10 mg tablet Take 1 tablet every day by oral route. active Not Available Not Available No t Available Combivent Respimat 20 mcg-100 mcg/actuati on solution for inhalation INHALE 1 PUFF 4 TIMES A DAY BY INHALATIO N ROUTE NEEDED. active Not Available Not Available No t Available Farxiga 5 mg tablet TAKE 1 TABLET BY MOUTH EVERY DAY active Not Available Not Available No t Available Vitals Date Recorded Body weight Body mass index (BMI) Body height Oxygen saturation Oxygen saturation in Arterial blood by Pulse oximetry Heart rate Provider Name and Address Organization Details Last Updated DateTime 4 264611. 87 g 36.4 kg/m2 175.26 cm 98 % 98 % 86 /min Homa Steele MA [facility] 16:38:22 Date Recorded Systolic blood pressure Diastolic blood pressure Provider Name and Address Organization Details Last Updated DateTime 03/29/2024 126 mm[Hg] 82 mm[Hg] Bennie Badillo DO Attn: Accounting,[address] [place], [address], [facility] 03/29/2024 16:57:18 Date Recorded Body height Body mass index (BMI) Body weight Provider Name and Address Organization Details Last Updated DateTime 08/14/2024 175.26 cm 35.7 kg/m2 867807.21 g Marylu Gaxiola MA [facility] 08/14/2024 08:06:09 Date Recorded Systolic blood pressure Diastolic blood pressure Provider Name and Address Organization Details Last Updated DateTime 08/14/2024 140 mm[Hg] 86 mm[Hg] Bennie Badillo DO Attn: Accounting,[address] [place], [address], [facility] 08/14/2024 08:18:33 Date Recorded Body height Oxygen saturation Oxygen saturation in Arterial blood by Pulse oximetry Heart rate Body mass index (BMI) Body weight Provider Name and Address Organization Details Last Updated DateTime 175.26 cm 97 % 97 % 85 /min 35.1 kg/m2 782291. 49 g Jazz Appiah MA [facility] 14:37:27 Date Recorded Systolic blood pressure Diastolic blood pressure Provider Name and Address Organization Details Last Updated DateTime 09/11/2024 132 mm[Hg] 82 mm[Hg] Bennie Badillo DO Attn: Accounting,[address] [place], [address], [facility] 09/11/2024 15:27:22 Date Recorded Body height Body mass index (BMI) Body weight Provider Name and Address Organization Details Last Updated DateTime 11/09/2024 175.26 cm 35.6 kg/m2 920045.76 g Claribel Ghosh MA [facility] 11/09/2024 15:51:14 Date Recorded Systolic blood pressure Diastolic blood pressure Provider Name and Address Organization Details Last Updated DateTime 11/09/2024 136 mm[Hg] 82 mm[Hg] Bennie Badillo DO Attn: Accounting,[address] [place], [address], [facility] 11/09/2024 16:28:17 Date Recorded Body height Body mass index (BMI) Body weight Provider Name and Address Organization Details Last Updated DateTime 12/18/2024 175.26 cm 35.5 kg/m2 215152.57 g Marylu Gaxiola MA [facility] 12/18/2024 15:32:03 Date Recorded Systolic blood pressure Diastolic blood pressure Provider Name and Address Organization Details Last Updated DateTime 12/18/2024 126 mm[Hg] 76 mm[Hg] Bennie Badillo DO Attn: Accounting[address] [place], [address], [facility] 12/18/2024 16:29:35 Social History Question Answer Notes LastModified by Organizat ion Details LastModified Time Tobacco Smoking Status Never Smoker Homa Steele MA [facility], [facility] 03/29/2024 16:34:50 What Is Your Level Of Alcohol Consumption? None Information not available 03/29/2024 What Is Your Level Of Caffeine Consumption? None Information not available 03/29/2024 What Was The Date Of Your Most Recent Tobacco Screening? 11/09/2024 [email or web address] Information not available 11/09/2024 Do You Use Any Illicit Or Recreational Drugs? No Information not available 03/29/2024 Has Tobacco Cessation Counseling Been Provided? No Information not available 03/29/2024 Do You Or Have You Ever Used Any Other Forms Of Tobacco Or Nicotine? No Information not available 03/29/2024 Sex: Unknown Functional Status None recorded. Mental Status None recorded. Family History Relationship Description Onset Age of this Age Resolved Age Notes LastModified by Organization Details LastModified Time Mother Diabetes mellitus [email or web address] Not available 2023 16:34:23 Mother Hypertensive disorder [email or web address] Not available 2023 16:34:31 Mother Hypercalcemi a [email or web address] Not available 15:51:27 Medical History Condition Response Coronary Artery Disease N Other N High Blood Pressure Y Atrial Fibrillation N Kidney or Bladder Problems N Thyroid Problems N Blood Clots N COPD N Depression N GI Problems N Skin Problems N Eating Disorder N Anemia N Heart Attack ([place]) N Anxiety Disorder N Diabetes Y Muscle, Joint, or Bone Problems N Arthritis N Seizures/Epilepsy N Acid Reflux (GERD) N Cancer N Stroke N Asthma Y Allergies Y ADHD N Substance Abuse N High Cholesterol N Hepatitis N Liver Disease N Schizophrenia N Headaches Y Heart Failure N Osteoporosis N Past Encounters Encounter ID Performer Location Encounter Start Date Encounter Closed Date Diagnosis/Indication Diagnosis SNOMED-CT Code Diagnosis ICD10 Code Diagnosis Note [id number] Rosa Maria Elliott RN [facility] [place] [address] [place] [address] 03/29/2024 15:55:59 03/30/2024 08:04:56 Adult health examination 800803599 Z00.00 Essential hypertension 60909573 I10 chronic conditiona t goaldyazid e 37.5/25 mgvalsarta n 80 mg daily Obstructiv e sleep apnea syndrome 28147777 G47.33 cpapdoing well Obesity 697625065 E66.9 chronic conditionn ot at [facility] y dietweight loss Type 2 otoniel betes mellitus without complication 230270252 E11.9 chronic conditiona sa 81 mg dailymetfo rmin 500 mg Seasonal allergy 3734421 04 J30.2 chronic conditiona t goalmontel ukast 10 mg Chronic insomnia 0356999 04 F51.04 chronic conditiona t goal Dyslipidemia 858602062 E 78.5 chronic conditiona t goalrosuva statin 5 mg Chronic low back pain 27 2127932 M54.50 check x ray ls spine Screening for malignant neoplasm of prostate 540933535 Z12.5 [id number] Bennie Badillo DO [facility] - [employer] [place] [address] [address] 08/14/2024 08:01:07 08/14/2024 08:59:58 Multiple joint pain 46255250 M25.50 anased rateuric acidRFcbcc hem 7ekgcxrwil l order a ct coronary artery ct screenfath er [place] 64 10 years ago Dyslipidemia 540638633 E 78.5 chronic conditiona t goalrosuva statin 5 mg Essential hypertension 44649685 I10 chronic conditionw ill monitor bpdyazide 37.5/25 mgvalsarta n 80 mg daily Obesity 068164097 E66.9 chronic conditionn ot at [facility] y dietweight loss Type 2 otoniel betes mellitus without complication 691915014 E11.9 chronic conditiona sa 81 mg dailymetfo rmin 500 mgorder a a1c Family his tory of Cardiovascular disease 502733762 Z82.49 [id number] Bennie Badillo DO [facility] [employer] - [employer] [place] [address] [address] 09/11/2024 14:26:39 09/11/2024 15:31:57 Chronic insomnia 163405474 F51.04 chronic conditiona t goal Dyslipidemia 409618335 E 78.5 chronic conditiona t goalrosuva statin 5 mg Essential hypertension 46647348 I10 chronic conditionw ill monitor bpdyazide 37.5/25 mgvalsarta n 80 mg daily Obesity 900235043 E66.9 chronic conditionn ot at [facility] y dietweight loss Type 2 otoniel betes mellitus without complication 499666207 E11.9 chronic conditiona sa 81 mg dailymetfo rmin 500 mgorder a a1c [id number] Bennie Badillo DO [facility] - [place] [address] [address] 11/09/2024 15:00:13 11/14/2024 13:02:00 Chronic insomnia 471357422 F51.04 chronic conditiona t goal Chronic low back pain 27 3876627 M54.50 check x ray ls spine Dyslipidemia 019205420 E 78.5 chronic conditiona t goalrosuva statin 5 mg Essential hypertension 94930847 I10 chronic conditionw ill monitor bpdyazide 37.5/25 mgvalsarta n 80 mg daily Obesity 523015425 E66.9 chronic conditionn ot at [facility] y dietweight loss Obstructiv e sleep apnea syndrome 65380715 G47.33 cpapdoing well Type 2 otoniel betes mellitus without complication 431872420 E11.9 chronic conditiona sa 81 mg dailymetfo rmin 500 mgorder a a1c Pain of ri ght elbow joint 2306537344 9245930 M25.521 lifted a boxelbow hurting sincex rayprednis one 20 mg daily 5 daysupdate 1 weektender lateral elbowno edema or erythema [id number] Bennie Badillo, DO [facility] [place] [address] [facility] [address] [place] [address] 12/18/2024 15:20:10 12/19/2024 11:36:19 Chronic low back pain 261325120 M54.50 check x ray ls spine had a mriwill order a pre and post contrast mri using fat saturated sequrence Chronic insomnia 3506826 04 F51.04 chronic conditiona t goal Essential hypertension 89835388 I10 chronic conditionw ill monitor bpdyazide 37.5/25 mgvalsarta n 80 mg daily Obesity 802457513 E66.9 chronic conditionn ot at [facility] y dietweight loss Type 2 otoniel betes mellitus without complication 810866308 E11.9 chronic conditiona sa 81 mg dailymetfo rmin 500 mga1c is 7.1 Morbid obesity 070468635 E66.01 Screening for malignant neoplasm of colon 304142395 Z12.11 Health Concerns Section Related Observation LastModified by Organization Detai ls LastModified Time None Recorded Concern Status LastModified by Organization Details LastModified Time None Recorded Advance Directives Directive None Recorded Payers Encounter Date Sequence Insurance Name Policy Number Policy Kaur Covered Member ID Kaur Member ID Guarantor Name 03/29/2024 1 [employer] [id number] Ziyad C Boyd [id number] Ziyad Boyd 08/14/2024 1 [employer] [id number] Ziyad C Boyd [id number] Ziyad Boyd 09/11/2024 1 [employer] [id number] Ziyad C Boyd [id number] Ziyad Boyd 11/09/2024 1 [employer] [id number] Ziyad C Boyd [id number] Ziyad Boyd 12/18/2024 1 [employer] [id number] Ziyad C Boyd [id number] Ziyad Boyd Notes Date Note Type Note Provider Name and Address Organization Details Recorded Time 03/29/2024 text/html establish care Rosa Maria Elliott RN null, [place] - [facility] 03/29/2024 18:07:32 08/14/2024 text/html routine 4 month checklabs reviewedhad a recent uri has recently had episodes of joints hurtinghas had 3-4 episodes this yearhas recently started feeling better had chillshad sweats Bennie Badillo DO Attn: Account[address] [place], [address], [facility] 08/14/2024 08:58:15 09/11/2024 text/html follow upchanged dietstopped caffeine Bennie Badillo DO Attn: Accounting[address] [place], [address], [place] [facility] 09/11/2024 18:36:43 11/09/2024 text/html routine follow updoing okright elbow Bennie Badillo DO Attn: Accounting[address] [place], [address], [place] [facility] 11/09/2024 19:00:28 12/18/2024 text/html routine 3 month follow upfollow up elbowstill with a little painmuch better Bennie Badillo DO Attn: Accounting,[address] [place], [id number], [place] [facility] 12/18/2024 17:56:50
--- OUTSIDE RECORDS SUMMARY | 2025-01-14 11:41 | XMS_ITS | Clinical Summary ---
Author Organization [facility] Office Center Address [address] [place] [address] Care Team Providers Care Extension Work Instructor Name Role Phone Bennie Badillo DO Primary Care Provider + Allergies Active Allergy Reactions Criticality Noted Date Comments 1 Alpha-Gal Unknown Dairy To lerance (Xdkdpldbo-Qozyp-1,3-Galactose) Unknown 01/12/2023 Milk Stomach upset Low 02/16/2019 GI Upset Sulfa (Sulfonamide Antibiotics) Rash Medium 01/24 Medications aspirin 325 mg tabletIndicatio ns:Chronic pain of right ankle Take 1 tablet (325 mg total) by mouth 2 (two) times a day 84 tablet 05/25/2022 Active valsartan (DIOVAN) 80 mg tablet Take 1 tablet (80 mg total) by mouth daily 90 tablet 3 03/29/2023 Active triamterene-hyd roCHLOROthiazid e 37.5-25 mg per tablet/capsule Take 1 tablet/capsu le by mouth every morning 90 capsule 3 03/29/2023 Active rosuvastatin (CRESTOR) 5 mg tablet Take 1 tablet (5 mg total) by mouth daily 90 tablet 3 03/29/2023 Active montelukast (SINGULAIR) 10 mg tabletIndicatio ns:Chronic rhinitis Take 1 tablet (10 mg total) by mouth nightly 90 tablet 3 03/29/2023 Active metFORMIN (GLUCOPHAGE) 500 mg tablet 1 bid 180 tablet 3 03/29/2023 Active dapagliflozin (FARXIGA) 5 mg tablet Take 1 tablet (5 mg total) by mouth daily 90 tablet 3 03/29/2023 Active HYDROcodone-malissa taminophen (NORCO) 5-325 mg per tabletIndicatio ns:Pain Take 1 tablet by mouth every 6 (six) hours as needed for pain 8 tablet 04/04/2023 Active naproxen (NAPROSYN) 500 mg tablet Take 1 tablet (500 mg total) by mouth 2 (two) times a day with meals 30 tablet 04/04/2023 Active baclofen (LIORESAL) 10 mg tabletIndicatio ns:Fall, initial encounter,Rib pain on left side Take 1 tablet (10 mg total) by mouth 3 (three) times a day as needed for muscle spasms 30 tablet 09/29/2023 Active Active Problems Problem Noted Date Diagnosed Date Nonsmoker 08/18/2023 Non-seasonal allergic rhinitis due to pollen DM (diabetes mellitus) 03/29/2023 Assessment & Plan (03/29/2023 1:14 PM CDT): a1c is 8.3 Recheck lab in 3 months Chronic condition Not at goal Skin lesion 03/29/2023 Assessment & Plan (03/29/2023 1:26 PM CDT): Chin and index finger Refer to derm 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 09/16/2022 Assessment & Plan (09/16/2022 4:58 PM GENERAL LOT ATTENDANT): See ENT Severe obesity (BMI 35.0-39.9) with comorbidity 09/16/2022 Assessment & Plan (03/29/2023 1:13 PM CDT): Healthy diet Assessment & Plan (09/16/2022 5:06 PM GENERAL LOT ATTENDANT): Healthy diet Regular exercise Weight loss Traumatic closed nondisplace d fracture of posterior malleolus of right tibia with routine healing 06/18/2022 TATIANA (obstructive sleep apnea) 02/05/2022 Assessment & Plan (02/05/2022 9:30 AM CDT): Refer back to sleep physician BMI 34.0-34.9,adult 02/05/2022 Assessment & Plan (02/05/2022 9:33 AM CDT): Healthy diet and regular exercise Insomnia 05/06/2021 Assessment & Plan (05/06/2021 4:36 PM CDT): Stress induced Add xanax .5 mg at hs Add sertraline HTN (hypertension) 12/30/2016 Assessment & Plan (03/29/2023 1:15 PM CDT): Patient is well controlled. Continue current treatment. Assessment & Plan (08/19/2020 11:12 AM CDT): Patient is well controlled. Continue current treatment. Assessment & Plan (07/17/2020 11:15 AM CDT): Patient is well controlled. Continue current treatment. Assessment & Plan (02/16/2019 9:47 AM CDT): Patient is well controlled. Continue current treatment. Resolved Problems Problem Noted Date Diagnosed Date Resolved Date Posterior rhinorrhea 08/12/2022 023 Closed displaced fracture of triquetral bone of left wrist 07/07/2022 01/12/2023 Left wrist pain 07/07/2022 01/12/2023 Right foot pain 07/07/2022 01/12/2023 Acute right ankle pain 06/18/202201/12 Fracture treatment convalesc ence or palliative care 06/18/2022 01/12/2023 History of COVID-19 02/26/2022 01/13/20 23 Controlled type 2 diabetes m ellitus with hyperglycemia, without long-term current use of insulin 02/05/2022 03/29/2023 Assessment & Plan (02/05/2022 9:31 AM CDT): a1c uacr Routine lab MERIDA (dyspnea on exertion) 11/04/2020 Assessment & Plan (11/04/2020 1:26 PM GENERAL LOT ATTENDANT): Ct chest Echo Lab COVID-19 08/19/2020 01/12/2023 Assessment & Plan (08/19/2020 11:13 AM CDT): Better Rash 07/17/2020 11/20/2021 Assessment & Plan (07/17/2020 11:13 AM CDT): lamisil cream Low back pain 07/17/2020 01/12/2023 Assessment & Plan (07/17/2020 11:14 AM CDT): X ray Shoulder pain 04/29/2020 11/20/2021 Assessment & Plan (04/29/2020 12:17 PM CDT): Right XR Annual physical exam 09/26/2019 023 Assessment & Plan (09/16/2022 4:58 PM GENERAL LOT ATTENDANT): Chart reviewed Assessment & Plan (02/05/2022 9:29 AM CDT): Chart meds Lab reviewed Assessment & Plan (04/29/2020 12:17 PM CDT): Still needs routine blood work and a colonoscopy Assessment & Plan (09/26/2019 2:56 PM GENERAL LOT ATTENDANT): lab Pharyngitis 02/16/2019 11/20/2021 Assessment & Plan (02/16/2019 9:47 AM CDT): z naye Robitussin ac 70 ml Elevated blood sugar 11/08/2017 022 Assessment & Plan (08/19/2020 11:12 AM CDT): sma 7 a1c Other specified abnormal fin dings of blood chemistry 11/08/2017 11/20/2021 Other insomnia not due to a substance or known physiological condition 11/03/2017 05/06/2021 Obesity 12/30/2016 02/05/2022 Encounters Date Type Department Care Team Description 01/04/2025 7:13 AM CDT - 01/04/2025 11:59 PM CDT Hospital Encounter [facility] MRI [facility] [place] [address] Low back pain, unspecified back pain laterality, unspecified chronicity, unspecified whether sciatica present Discharge Disposition: Discharge to home or self care 12/08/2024 6:53 PM GENERAL LOT ATTENDANT - 12/08/2024 11:59 PM GENERAL LOT ATTENDANT Hospital Encounter [facility] [address] [place] [address] Other intervertebral disc degeneration, lumbar region without mention of lumbar back pain or lower extremity pain Discharge Disposition: Discharge to home or self care from Last 3 Months Immunizations Immunization Administration Dates Next Due Influenza, Quadrivalent, Spl it, Preservative Free, Intramuscular 09/16/2022,09/27/2020 Influenza, Unspecified 07/25/2021(Deferred: Susan ent Refused) Surgical History Surgery Date Site/Laterality Comments APPENDECTOMY TYMPANOSTOMY TUBE PLACEMENT TOOTH EXTRACTION Medical History Medical History Date Comments Hypertension Obesity Diabetes mellitus (HCC) Leg fracture, right Family History Medical History Relation Name Comments Heart attack Father Heart disease Father Cancer Mother Hypertension Mother Relation Name Status Comments Father Mother Alive Social History Tobacco Use Types Packs/Day Years Used Date Smoking Tobacco: Never Smokeless Tobacco: Never Tobacco Cessation:Counseling Given: Not Answered Alcohol Use Standard Drinks/Week Comments Not Currently 0 (1 standard drink = 0.6 oz pur e alcohol) rarely AUDIT-C Answer Date Recorded Q1: How often do you have a drink containing alcohol? Never 09/16/2022 Q2: How many drinks containi ng alcohol do you have on a typical day when you are drinking? Patient does not drink Q3: How often do you have si x or more drinks on one occasion? Never 09/16/2022 PHQ-2 Answer Date Recorded PHQ-2 Total Score (If total score is 3 or more points, staff should administer the PHQ-9) 0 01/12/2023 Personal Safety Answer Date Recorded Have you ever been in or are you currently in a harmful physical or emotional relationship or is someone making you feel afraid or unsafe? Denies 04/04/2023 Sex and Gender Information Value Date Recorded Sex Assigned at Not on file Legal Sex Male 9:57 PM CDT Gender Identity Male 11/20/2021 10:00 AM GENERAL LOT ATTENDANT Sexual Orientation Not on file Obstetrics History Last Filed Vital Signs Vital Sign Reading Time Taken Comments Blood Pressure 136/80 08/23/2024 1:59 PM CDT Pulse 89 08/23/2024 1:59 PM CDT Temperature 36.8 C (98.2 F) 08/23/2024 1:59 PM CDT Respiratory Rate 18 08/23/2024 1:59 PM CDT Oxygen Saturation 98% 08/23/2024 1:59 PM CDT Inhaled Oxygen Concentration - - Weight 108.4 kg (238 lb 15.7 oz) 01/04/2025 7:57 AM CDT Height 177.8 cm (5' 10 ) 01/04/2025 7:57 AM CDT Body Mass Index 34.29 01/04/2025 7:57 AM CDT Plan of Treatment Health Maintenance Due Date Last Done Comments Hepatitis C Screening 1969 Foot Exam 1969 Hepatitis B Screening 1987 Pneumococcal vaccine <65 (1 of 2 - PCV) 1988 Dilated Eye Exam 12/28/2022 12/28/2021 Hemoglobin A1C 09/13/2023 03/13/2023, 08/26, 07/18/2021 Regular Well Visit/Exam 18-64 09/16/2023, 02/05/2022, 04/29/2020, Additional history exists Albumin Creatinine Ratio, Urine 09/22/2023 Depression Screening 01/13/2024 01/12/2023, 02/05/2022, 07/17/2020, Additional history exists Lipid Panel 03/13/2024 03/13/2023, 08/26, 07/22/2020, Additional history exists eGFR 04/04/2024 04/04/2023, 08/26, 04/09/2021 Covid-19 Vaccine (2023-2 5 season) 2024 01/31/2021, 01/10/2021 Influenza Vaccine (#1) 2024 09/16/2022, 2019 Prostate Cancer Screening-PSA 09/22/2024 09/22/2022, 11/06/2017 Colon Cancer Screening-Colonoscopy 06/12/2025 06/12/2020 DTaP/Tdap/Td Vaccine (2 - Td or Tdap) 03/18/2033 03/18/2023 Colon Cancer Screening-CT Colonography Discontinued 06/12/2020 Colon Cancer Screening-DNA Stool Discontinued 06/12/20 Colon Cancer Screening-FIT Discontinued 06/12/2020 Colon Cancer Screening-Sigmoidoscopy Discontinued 06/12/2020 Zoster Vaccine Completed 05/17/2023, 03/18/2023 Procedures Procedure Name Priority Date/Time Associated Diagnosis Comments MRI LUMBAR SPINE W WO CONTRAST Schedule Routine, Read Routine (OP Routine) 01/04/2025 8:30 AM CDT Low back pain, unspecified back pain laterality, unspecified chronicity, unspecified whether sciatica present MRI LUMBAR SPINE WO CONTRAST Schedule Routine, Read Routine (OP Routine) 12/08/2024 9:25 PM GENERAL LOT ATTENDANT Other intervertebral disc degeneration, lumbar region without mention of lumbar back pain or lower extremity pain EGFR STAT 04/04/2023 2:29 PM CDT HEMOGLOBIN A1C Routine 03/13/2023 10:57 AM CDT High blood sugar LIPID PANEL Routine 03/13/2023 10:57 AM CDT High cholesterol PSA SCREEN Routine 09/22/2022 1:33 PM GENERAL LOT ATTENDANT Screening PSA (prostate specific antigen) ALBUMIN CREATININE RATIO, URINE Routine 09/22/2022 1:22 PM GENERAL LOT ATTENDANT Controlled type 2 diabetes mellitus with hyperglycemia, without long-term current use of insulin (HCC) DIABETIC EYE EXAM Routine 12/28/2021 COLONOSCOPY Routine 06/12/2020 from Last 3 Months or Most Recently Relevant to Health Maintenance Results * MRI Lumbar Spine W WO Contrast (01/04/2025 8:30 AM CDT) Anatomical Region Laterality Modality Spine N/A Magnetic Resonan ce 01/04/2025 8:50 AM CDT Narrative 01/04/2025 9:40 AM CDT EXAM DESCRIPTION: MRI LUMBAR SPINE W WO CONTRAST REASON FOR STUDY: low back pain, unspecified No surgery, wrestling injury at age 16; low back pain since injury with pain radiating down bilateral legs at different times (R=L); pain gradually worsening over time TECHNIQUE: Sagittal and Axial imaging includes T1, T1 post gadolinium, T2, and STIR sequences. CONTRAST TYPE/DOSE: 20mL of GADOTERATE MEGLUMINE 0.5 MMOL/ML INTRAVENOUS SOLUTION (SO) injected via intravenous COMPARISON: Lumbar spine MRI dated 12/08/2024. Lumbar spine radiographs dated 09/11/2024. FINDINGS: There are 5 vif-eyz-javnyam lumbar type vertebral bodies. The L1 and L3 vertebral body 3 mm and S1 segment 5 mm STIR hyperintense, T1 hypointense foci are similar in size when compared to the previous lumbar spine MRI dated 12/08/2024. All of these demonstrate associated postcontrast enhancement. There is an additional peripheral enhancing focus in the L4 vertebral body measuring up to 6 mm. The level by level degenerative changes are unchanged. IMPRESSION: The STIR hyperintense, T1 hypointense lesions noted on the lumbar spine MRI dated 12/08/2024 are again seen and demonstrate enhancement on the current study. Both atypical intraosseous hemangioma and metastatic disease can have similar appearance. The clinical aspects of the case will determine the need for further evaluation with PET-CT versus surveillance contrast-enhanced MRI in 3 months time. THIS IS AN ELECTRONICALLY VERIFIED FINAL REPORT 01/04/2025 9:40 AM - Electronically signed by Hesham STRAK T: Report ID: [id number] Reading Location: [id number] Procedure Note Hesham Sharma, DO - 01/04/2025 EXAM DESCRIPTION: MRI LUMBAR SPINE W WO CONTRAST REASON FOR STUDY: low back pain, unspecified No surgery, wrestling injury at age 16; low back pain since injury withpain radiating down bilateral legs at different times (R=L); pain gradually worsening over time TECHNIQUE: Sagittal and Axial imaging includes T1, T1 post gadolinium, T2,and STIR sequences. CONTRAST TYPE/DOSE: 20mL of GADOTERATE MEGLUMINE 0.5 MMOL/ML INTRAVENOUS SOLUTION (SO) injected via intravenous COMPARISON: Lumbar spine MRI dated 12/08/2024. Lumbar spine radiographs dated 09/11/2024. FINDINGS: There are 5 dsu-aej-haefoyt lumbar type vertebral bodies. The L1 and L3 vertebral body 3 mm and S1 segment 5 mm STIR hyperintense,T1 hypointense foci are similar in size when compared to the previous lumbar spine MRI dated 12/08/2024. All of these demonstrate associatedpostcontrast enhancement. There is an additional peripheral enhancing focus in the L4 vertebral body measuring up to 6 mm. The level by level degenerative changes are unchanged. IMPRESSION: The STIR hyperintense, T1 hypointense lesions noted on thelumbar spine MRI dated 12/08/2024 are again seen and demonstrate enhancement onthe current study. Both atypical intraosseous hemangioma and metastaticdisease can have similar appearance. The clinical aspects of the case willdetermine the need for further evaluation with PET-CT versus surveillance contrast-enhanced MRI in 3 months time. THIS IS AN ELECTRONICALLY VERIFIED FINAL REPORT 01/04/2025 9:40 AM - Electronically signed by Hesham STARK T: Report ID: [id number] Reading Location: [place] [address] Bennie Badillo DO IMG MRI PROCEDURES Final Result * MRI Lumbar Spine WO Contrast (12/08/2024 9:25 PM GENERAL LOT ATTENDANT) Anatomical Region Laterality Modality Spine N/A Magnetic Resonan ce 12/11/2024 7:47 AM GENERAL LOT ATTENDANT Narrative 12/11/2024 7:54 AM GENERAL LOT ATTENDANT EXAM DESCRIPTION: MRI LUMBAR SPINE WO CONTRAST REASON FOR STUDY: other intervertebral disc degeneration Patient stated they broke their back in highschool and has had pain ever since and occasionally will radiate down one or the other side. No recent trauma. No surgery TECHNIQUE: Sagittal and Axial imaging includes T1, T2, STIR sequences. COMPARISON: Lumbar spine radiographs dated 09/11/2024. FINDINGS: SEGMENTATION: 5 xwm-uqi-kqmfwfz lumbar type vertebral bodies. ALIGNMENT: Mild levoconvex curvature. Mild retrolisthesis of L1 on L2 through L5 on S1. VERTEBRAE: No acute compression fracture in the lumbar spine. Moderate endplate degenerative changes and marginal spur formation from L3-L4 through L5-S1 and to a lesser extent the remainder of the lumbar levels. In the S1 segment is a rounded 5 mm T2/STIR hyperintense, T1 hypointense focus, indeterminate and could be an atypical intraosseous hemangioma in a patient without history of malignancy. In the L1 and L3 vertebral body posterior margin is a 3 mm T2/stir hyperintense, slightly T1 hypointense focus also indeterminate and presumed to be additional atypical intraosseous hemangioma in a patient without history of malignancy. The L4 vertebral body T1 and T2 hyperintense focus would be compatible with an intraosseous hemangioma. DISC HEIGHT: Multilevel disc desiccation and height loss, most from L3-L4 through L5-S1. HARDWARE: None in the spine. CORD/CAUDA: Conus medullaris terminates at upper margin of L2. LOWER THORACIC: Incompletely imaged. Degenerative changes without high-grade spinal canal stenosis. INDIVIDUAL DISC LEVELS: L1-L2: Disc bulge and superimposed right subarticular disc protrusion. Bilateral facet arthropathy. No significant neural foraminal narrowing. L2-L3: Disc bulge and superimposed small central disc protrusion. Bilateral facet arthropathy. Flattening of the ventral thecal sac. No significant neural foraminal narrowing. L3-L4: Disc bulge with marginal spur formation. Superimposed central/right subarticular disc protrusion with annular fissure. Thickened ligamentum flavum and facet arthropathy. Mild spinal canal stenosis. Zecmt-fvuxsnp-xegz-left lateral recess effacement. Mild neural foraminal narrowing. L4-L5: Disc bulge with marginal spur formation. Superimposed central inferior disc extrusion to the upper margin of L5. Thickened ligamentum flavum and facet arthropathy. Lynl-mo-jhfaaujt spinal canal stenosis. Mgtwa-fujokgb-qryh-left lateral recess effacement with disc and thickened ligamentum flavum contacting the descending right L5 nerve root. Mild neural foraminal narrowing. L5-S1: Disc bulge with marginal spur formation. Superimposed central inferior disc extrusion to the upper margin of L5. Bilateral facet arthropathy. Flattening of the ventral thecal sac. Lateral recess effacement on both sides with disc/marginal spur contacting the descending S1 nerve roots. Swdl-ii-baerylyc right and moderate left neural foraminal narrowing. Disc/marginal spur and facet arthropathy contacting the exiting left L5 nerve root. IMPRESSION: 1. Moderate lumbar disc degeneration with thickened ligamentum flavum and facet arthropathy as described. The spinal canal narrowing is most noticeable at L3-L4 and L4-L5. 2. Lateral recess narrowing is most noticeable from L3-L4 through L5-S1. 3. Neural foraminal narrowing is most noticeable on the left at L5-S1. 4. A few rounded T2/STIR hyperintense, T1 hypointense foci in the lumbar spine and imaged upper sacrum are indeterminate and could reflect atypical intraosseous hemangiomas in a patient without history of malignancy. If there is concern for metastatic disease then recommend a complete pre and postcontrast lumbar spine MRI utilizing fat saturated sequence. Otherwise attention on follow-up MRI in 3 months time. THIS IS AN ELECTRONICALLY VERIFIED FINAL REPORT 12/11/2024 7:54 AM - Electronically signed by Hesham Sharma D.O. AP T: Report ID: [id number] Reading Location: [place] [address] Procedure Note Hesham Sharma, DO - 12/11/2024 EXAM DESCRIPTION: MRI LUMBAR SPINE WO CONTRAST REASON FOR STUDY: other intervertebral disc degeneration Patient stated they broke their back in highschool and has had pain eversince and occasionally will radiate down one or the other side. No recenttrauma. No surgery TECHNIQUE: Sagittal and Axial imaging includes T1, T2, STIR sequences. COMPARISON: Lumbar spine radiographs dated 09/11/2024. FINDINGS: SEGMENTATION: 5 hfn-ccn-aunczvn lumbar type vertebral bodies. ALIGNMENT: Mild levoconvex curvature. Mild retrolisthesis of L1 on L2 through L5 on S1. VERTEBRAE: No acute compression fracture in the lumbar spine. Moderate endplate degenerative changes and marginal spur formation from L3-K2micchyb L5-S1 and to a lesser extent the remainder of the lumbar levels. In theS1 segment is a rounded 5 mm T2/STIR hyperintense, T1 hypointense focus, indeterminate and could be an atypical intraosseous hemangioma in apatient without history of malignancy. In the L1 and L3 vertebral body posterior margin is a 3 mm T2/stir hyperintense, slightly T1 hypointense focus also indeterminate and presumed to be additional atypical intraosseoushemangioma in a patient without history of malignancy. The L4 vertebral body T1 andT2 hyperintense focus would be compatible with an intraosseous hemangioma. DISC HEIGHT: Multilevel disc desiccation and height loss, most fromL3-L4 through L5-S1. HARDWARE: None in the spine. CORD/CAUDA: Conus medullaris terminates at upper margin of L2. LOWER THORACIC: Incompletely imaged. Degenerative changes without high-grade spinal canal stenosis. INDIVIDUAL DISC LEVELS: L1-L2: Disc bulge and superimposed right subarticular disc protrusion. Bilateral facet arthropathy. No significant neural foraminal narrowing. L2-L3: Disc bulge and superimposed small central disc protrusion.Bilateral facet arthropathy. Flattening of the ventral thecal sac. No significant neural foraminal narrowing. L3-L4: Disc bulge with marginal spur formation. Superimposedcentral/right subarticular disc protrusion with annular fissure. Thickened ligamentum flavum and facet arthropathy. Mild spinal canal stenosis. Wxeha-mwllrvt-asme-left lateral recess effacement. Mild neural foraminal narrowing. L4-L5: Disc bulge with marginal spur formation. Superimposed centralinferior disc extrusion to the upper margin of L5. Thickened ligamentum flavum and facet arthropathy. Qwji-qa-qjbirplf spinal canal stenosis. Bvicz-otjbpex-nbdc-left lateral recess effacement with disc and thickened ligamentum flavum contacting the descending right L5 nerve root. Mildneural foraminal narrowing. L5-S1: Disc bulge with marginal spur formation. Superimposed centralinferior disc extrusion to the upper margin of L5. Bilateral facet arthropathy. Flattening of the ventral thecal sac. Lateral recess effacement on bothsides with disc/marginal spur contacting the descending S1 nerve roots. Dnhi-mt-qusdyczs right and moderate left neural foraminal narrowing. Disc/marginal spur and facet arthropathy contacting the exiting left A6gyaek root. IMPRESSION: 1. Moderate lumbar disc degeneration with thickened ligamentum flavumand facet arthropathy as described. The spinal canal narrowing is mostnoticeable at L3-L4 and L4-L5. 2. Lateral recess narrowing is most noticeable from L3-L4 through L5-S1. 3. Neural foraminal narrowing is most noticeable on the left at L5-S1. 4. A few rounded T2/STIR hyperintense, T1 hypointense foci in the lumbar spine and imaged upper sacrum are indeterminate and could reflect atypical intraosseous hemangiomas in a patient without history of malignancy. Ifthere is concern for metastatic disease then recommend a complete pre and postcontrast lumbar spine MRI utilizing fat saturated sequence. Otherwise attention on follow-up MRI in 3 months time. THIS IS AN ELECTRONICALLY VERIFIED FINAL REPORT 12/11/2024 7:54 AM - Electronically signed by Hesham STARK T: Report ID: [id number] Reading Location: [place] [address] us Bennie Badillo DO IMG MRI PROCEDURES Final Result * eGFR (04/04/2023 2:29 PM CDT) eGFR 115 mL/min/1. 73 m2 [facility] Comment: Interpretive Data Reference Interval Normal >/= 90 mL/min/1.73m2 Mildly decreased* 60 - 89 mL/min/1.73m2 Mildly to moderately decreased 45 - 59 mL/min/1.73m2 Moderately to severely decreased 30 - 44 mL/min/1.73m2 Severely decreased 15 - 29 mL/min/1.73m2 Kidney Failure < 15 mL/min/1.73m2 *Relative to young adult level Estimated glomerular filtration rate is determined by the 2020 CKD-EPI equation recommended by the National Kid[employer] Foundation (A Unifying Approach to GFR Estimation: Recommendations of the NKF-ASK Task Force on Reassessing the Inclusion of Race in Diagnosing Kidney Disease, JASN 2020). The CKD-EPI equation should not be used for patients with unstable renal function and has not been validated in children and those over 70. Current interpretive data was last reviewed 2021. Testing performed by: [facility], [address] [place] [address], [place]., [address] Blood 04/04/2023 2:29 PM CDT 04/04/2023 2:34 PM CDT [facility] BLOOD ORDERABLES Final Result [facility] [address] [facility] [place] [address] * (ABNORMAL) Hemoglobin A1c (03/13/2023 10:57 AM CDT) Hgb A1C 8.3(H) 4.0 - 5.6 % [facility] Comment:Testing performed by : [address] [address] Estimated Average Glucose 192 mg/dL [facility] Comment: The ADA recommends reporting an estimated Average Glucose (eAG) with all Hemoglobin A1c results using the equation derived from a study of 507 normal and diabetic adults. Minority populations were underrepresented and children were not included. (Diabetes Care 31:2010-1548, 2008). The eAG is not equivalent to a fasting glucose. Testing performed by: [address] [address] Blood 03/13/2023 10:5 7 AM CDT 03/13/2023 11:09 AM CDT Bennie Badillo DO LAB BLOOD ORDERABLES Fin al Result [place] [address] [facility] [place] [address] * (ABNORMAL) Lipid panel (03/13/2023 10:57 AM CDT) Cholesterol 148 30 - 199 mg/dL [facility] Comment: Interpretive Data Ages < or = 19 years Acceptable: <170 mg/dL Borderline high: 170-199 mg/dL High: >or= 200 mg/dL Ages > or = 20 years Desirable: <200 mg/dL Borderline high: 200-239 mg/dL High: >or= 240 mg/dL Literature References: 1. Expert Panel on Integrated Guidelines for Cardiovascular Health and Risk Reduction in Children and Adolescents. Pediatrics 2011;128:S213 2. NCEP Expert Panel. Circulation 2004;110:227 Current Interpretive Data was last revised on 2018. Testing performed by: [address] [address] Triglycerides 337(H) <=149 mg/dL [facility] Comment: Interpretive Data Ages < or = 9 years Acceptable: <75 mg/dL Borderline high: 75-99 mg/dL High: >or= 100 mg/dL Ages 10 to 20 years Acceptable: <90 mg/dL Borderline high: 90-129 mg/dL High: >or= 130 mg/dL Ages > or = 20 years Desirable: <150 mg/dL Borderline high: 150-199 mg/dL High: 200-499 mg/dL Very high: >or= 499 mg/dL Literature References: 1. Expert Panel on Integrated Guidelines for Cardiovascular Health and Risk Reduction in Children and Adolescents. Pediatrics 2011;128:S213 2. NCEP Expert Panel. Circulation 2004;110:227 Current Interpretive Data was last revised on 2018. Testing performed by: [address] [address] HDL 32(L) >=40 mg/dL [facility] Comment: Interpretive Data Ages < or = 19 years Acceptable: >45 mg/dL Borderline low: 40-45 mg/dL Low: <40 mg/dL Ages > or = 20 years Desirable: >or= 60 mg/dL Low: <40 mg/dL Literature References: 1. Expert Panel on Integrated Guidelines for Cardiovascular Health and Risk Reduction in Children and Adolescents. Pediatrics 2011;128:S213 2. NCEP Expert Panel. Circulation 2004;110:227 Current Interpretive Data was last revised on 2018. Testing performed by: [address] [address] LDL, calculated 49 <=129 mg/dL [facility] Comment: Interpretive Data Ages < or = 19 years Acceptable: <110 mg/dL Borderline high: 110-129 mg/dL High: >or= 130 mg/dL Ages > or = 20 years Optimal: <100 mg/dL Near optimal: 100-129 mg/dL Borderline high: 130-159 mg/dL High: >160 mg/dL Literature References: 1. Expert Panel on Integrated Guidelines for Cardiovascular Health and Risk Reduction in Children and Adolescents. Pediatrics 2011;128:S213 2. NCEP Expert Panel. Circulation 2004;110:227 Current Interpretive Data was last revised on 2018. Testing performed by: [address] [address] Non-HDL Cholesterol 116 mg/dL [facility] Comment: Interpretive Data Ages < or = 19 years Acceptable: <120 mg/dL Borderline high: 120-144 mg/dL High: >145 mg/dL Ages > or = 20 years When triglycerides are >200 mg/dL, Non-HDL cholesterol is a secondary target of therapy with treatment goals that are 30 mg/dL greater than the LDL cholesterol target. Literature References: 1. Expert Panel on Integrated Guidelines for Cardiovascular Health and Risk Reduction in Children and Adolescents. Pediatrics 2011;128:S213 2. NCEP Expert Panel. Circulation 2004;110:227 Current Interpretive Data was last revised on 2018. Testing performed by: [address] [address] Chol/HDL ratio 5 [facility] Comment:Testing performed by : [address] [address] Blood 03/13/2023 10:5 7 AM CDT 03/13/2023 11:11 AM CDT us Bennie Badillo DO LAB BLOOD ORDERABLES Fin al Result [facility] [address] [facility] Department [place] [address] * PSA screen (09/22/2022 1:33 PM GENERAL LOT ATTENDANT) PSA-Total 0.60 <=3.90 ng/mL [facility] Comment: Interpretive Data AGE SEX REFERENCE INTERVAL 0 minutes-150 years Female None 0 minutes-49 years Male None 50-59 years Male 0-3.90 60-69 years Male 0-5.40 70-79 years Male 0-6.20 80-150 years Male 0-6.20 The Jason PSA Total assay procedure was used. Results from different manufacturers or methods may not be comparable. Serial testing should be performed using the same method. Current interpretive data last revised 22. Blood 09/22/2022 1:33 PM GENERAL LOT ATTENDANT 09/22/2022 2:12 PM GENERAL LOT ATTENDANT Bennie Badillo DO LAB BLOOD ORDERABLES Fin al Result Performing Organization Address [facility] de Phone Number [address] [address] * (ABNORMAL) Albumin Creatinine Ratio, Urine (09/22/2022 1:22 PM GENERAL LOT ATTENDANT) Albumin Ur 47.2 mg/L [facility] Comment: Interpretive Data No reference range established. Current interpretive data was last revised 2019. Creatinine Ur 156.0 mg/dL [facility] Comment: Interpretive Data No reference range established. Current interpretive data was last revised 2019. Albumin Creatinine Ratio, Ur 30(H) 1 - 29 mg/g [facility] Urine 09/22/2022 1:22 PM GENERAL LOT ATTENDANT 09/22/2022 1:48 PM GENERAL LOT ATTENDANT Bennie Badillo DO LAB URINE ORDERABLES Fin al Result Performing Organization Address [facility] de Phone Number [place] [address] [place] [address] * Diabetic Eye Exam (12/28/2021) Historical Provider HEALTH MAINTENANCE Final Result * Colonoscopy (06/12/2020) Anatomical Region Laterality Modality Other Historical Provider ENDOSCOPY PROCEDURES Ary l Result from Last 3 Months or Most Recently Relevant to Health Maintenance Insurance [employer] HMO MRA AETNA [facility] HMO Care Teams Extension Work Instructor Relationship Specialty Start Date End Date Bennie Badillo DO PCP - General Family Medicine 02/15/19
--- OUTSIDE RECORDS SUMMARY | 2025-01-14 11:41 | XMS_ITS | Referral Summary ---
Author Organization [facility] Address [address] [place] [address] Care Team Providers Care Scanner Operator Name Role Phone Bennie Badillo DO Primary Care Provider + Encounters Date Type Department Care Team Description 01/04/2025 7:13 AM CDT - 01/04/2025 11:59 PM CDT Hospital Encounter [facility] MRI [address] [place] [address] Low back pain, unspecified back pain laterality, unspecified chronicity, unspecified whether sciatica present Discharge Disposition: Discharge to home or self care 12/08/2024 6:53 PM PROOF PRESS OPERATOR - 12/08/2024 11:59 PM PROOF PRESS OPERATOR Hospital Encounter [facility] MRI [address] [place] [address] Other intervertebral disc degeneration, lumbar region without mention of lumbar back pain or lower extremity pain Discharge Disposition: Discharge to home or self care from Last 3 Months Allergies Active Allergy Reactions Criticality Noted Date Comments 1 Alpha-Gal Unknown Dairy To lerance (Rarkuolfo-Raixs-9,3-Galactose) Unknown 01/12/2023 Milk Stomach upset Low 02/16/2019 [...] 09/16/2022 Assessment & Plan (09/16/2022 4:58 PM PROOF PRESS OPERATOR): See ENT Severe obesity (BMI 35.0-39.9) with comorbidity 09/16/2022 Assessment & Plan (03/29/2023 1:13 PM CDT): Healthy diet Assessment & Plan (09/16/2022 5:06 PM PROOF PRESS OPERATOR): Healthy diet Regular exercise Weight loss Traumatic [...] 06/18/2022 01/12/2023 History of COVID-19 02/26/2022 01/13/20 Controlled type 2 diabetes m ellitus with hyperglycemia, without long-term current use of insulin 02/05/2022 03/29/2023 Assessment & Plan (02/05/2022 9:31 AM CDT): a1c uacr Routine lab MERIDA (dyspnea on exertion) 11/04/2020 Assessment & Plan (11/04/2020 1:26 PM PROOF PRESS OPERATOR): Ct chest Echo Lab COVID-19 08/19/2020 01/12/2023 [...] 023 Assessment & Plan (09/16/2022 4:58 PM PROOF PRESS OPERATOR): Chart reviewed Assessment & Plan (02/05/2022 9:29 AM CDT): Chart meds Lab reviewed Assessment & Plan (04/29/2020 12:17 PM CDT): Still needs routine blood work and a colonoscopy Assessment & Plan (09/26/2019 2:56 PM PROOF PRESS OPERATOR): lab Pharyngitis 02/16/2019 11/20/2021 Assessment & Plan (02/16/2019 9:47 AM CDT): josie [place] ac 70 ml Elevated blood sugar 11/08/201702/05/ 022 Assessment & Plan (08/19/2020 11:12 AM CDT): sma 7 a1c Other specified abnormal fin dings of blood chemistry 11/08/2017 11/20/2021 Other insomnia not due to a substance or known physiological condition 11/03/2017 05/06/2021 Obesity 12/30/2016 02/05/2022 Immunizations Immunization Administration Dates Next Due Influenza, Quadrivalent, Spl it, Preservative Free, Intramuscular 09/16/2022,09/27/2020 Influenza, Unspecified 07/25/2021(Deferred: Susan ent Refused) Social History Tobacco Use Types Packs/Day Years [...] CDT Gender Identity Male 11/20/2021 10:00 AM PROOF PRESS OPERATOR Sexual Orientation Not on file Last Filed Vital Signs Vital Sign Reading [...] 01/04/2025 7:57 AM CDT Plan of Treatment Not on file Procedures Procedure Name Priority Date/Time Associated Diagnosis Comments MRI LUMBAR SPINE W WO CONTRAST Schedule Routine, Read Routine (OP Routine) 01/04/2025 8:30 AM CDT Low back pain, unspecified back pain laterality, unspecified chronicity, unspecified whether sciatica present MRI LUMBAR SPINE WO CONTRAST Schedule Routine, Read Routine (OP Routine) 12/08/2024 9:25 PM PROOF PRESS OPERATOR Other intervertebral disc degeneration, lumbar region without mention of lumbar back pain or lower extremity pain EGFR STAT 04/04/2023 2:29 PM CDT HEMOGLOBIN A1C Routine 03/13/2023 10:57 AM CDT High blood sugar LIPID PANEL Routine 03/13/2023 10:57 AM CDT High cholesterol PSA SCREEN Routine 09/22/2022 1:33 PM PROOF PRESS OPERATOR Screening PSA (prostate specific antigen) ALBUMIN CREATININE RATIO, URINE Routine 09/22/2022 1:22 PM PROOF PRESS OPERATOR Controlled type 2 diabetes mellitus with hyperglycemia, [...] radiographs dated 09/11/2024. FINDINGS: There are 5 arj-xkc-pvflcjl lumbar type vertebral bodies. The L1 and [...] 9:40 AM - Electronically signed by Hesham Sharma D.O. AP T: Report ID: [id number] Reading Location: [id number] Procedure Note Hesham Sharma, DO - 01/04/2025 [...] radiographs dated 09/11/2024. FINDINGS: There are 5 nsl-jwh-uhrkgti lumbar type vertebral bodies. The L1 and [...] signed by Hesham STARK T: Report ID: [id number] Reading Location: [place] [address] Bennie Badillo DO IMG MRI PROCEDURES Final Result * MRI Lumbar Spine WO Contrast (12/08/2024 9:25 PM PROOF PRESS OPERATOR) Anatomical Region Laterality Modality Spine N/A Magnetic Resonan ce 12/11/2024 7:47 AM PROOF PRESS OPERATOR Narrative 12/11/2024 7:54 AM PROOF PRESS OPERATOR EXAM DESCRIPTION: MRI LUMBAR SPINE WO CONTRAST REASON FOR STUDY: other intervertebral disc degeneration Patient stated they broke their back in highschool and has had pain ever since and occasionally will radiate down one or the other side. No recent trauma. No surgery TECHNIQUE: Sagittal and Axial imaging includes T1, T2, STIR sequences. COMPARISON: Lumbar spine radiographs dated 09/11/2024. FINDINGS: SEGMENTATION: 5 jek-mpz-uriuevk lumbar type vertebral bodies. ALIGNMENT: Mild levoconvex [...] and facet arthropathy. Mild spinal canal stenosis. Asjje-uzpvrvu-cawa-left lateral recess effacement. Mild neural foraminal narrowing. L4-L5: Disc bulge with marginal spur formation. Superimposed central inferior disc extrusion to the upper margin of L5. Thickened ligamentum flavum and facet arthropathy. Yede-cy-qzjazzaz spinal canal stenosis. Pyujy-jhedzmk-uxzc-left lateral recess effacement with disc and thickened ligamentum flavum contacting the descending right L5 nerve root. Mild neural foraminal narrowing. L5-S1: Disc bulge with marginal spur formation. Superimposed central inferior disc extrusion to the upper margin of L5. Bilateral facet arthropathy. Flattening of the ventral thecal sac. Lateral recess effacement on both sides with disc/marginal spur contacting the descending S1 nerve roots. Snad-ks-wwsknvel right and moderate left neural foraminal narrowing. [...] signed by Hesham STARK T: Report ID: [id number] Reading Location: [place] [address] Procedure Note Hesham Sharma, DO - 12/11/2024 [...] spine radiographs dated 09/11/2024. FINDINGS: SEGMENTATION: 5 wwl-awh-wmohakz lumbar type vertebral bodies. ALIGNMENT: Mild levoconvex curvature. Mild retrolisthesis of L1 on L2 through L5 on S1. VERTEBRAE: No acute compression fracture in the lumbar spine. Moderate endplate degenerative changes and marginal spur formation from L3-X4aehgmsy L5-S1 and to a lesser extent the [...] and facet arthropathy. Mild spinal canal stenosis. Uwdjt-aqjomlf-caal-left lateral recess effacement. Mild neural foraminal narrowing. L4-L5: Disc bulge with marginal spur formation. Superimposed centralinferior disc extrusion to the upper margin of L5. Thickened ligamentum flavum and facet arthropathy. Xucp-gu-bkbbprdq spinal canal stenosis. Hpudd-rmhkpzg-bbas-left lateral recess effacement with disc and thickened ligamentum flavum contacting the descending right L5 nerve root. Mildneural foraminal narrowing. L5-S1: Disc bulge with marginal spur formation. Superimposed centralinferior disc extrusion to the upper margin of L5. Bilateral facet arthropathy. Flattening of the ventral thecal sac. Lateral recess effacement on bothsides with disc/marginal spur contacting the descending S1 nerve roots. Ihtw-oj-ijjlpaml right and moderate left neural foraminal narrowing. Disc/marginal spur and facet arthropathy contacting the exiting left N0kwdrm root. IMPRESSION: 1. Moderate lumbar disc degeneration [...] signed by Hesham STARK T: Report ID: [id number] Reading Location: [place] [address] us Bennie Badillo DO IMG MRI PROCEDURES [...] was last reviewed 2021. Testing performed by: [facility], [address] [place] [address], [place]., [address] Blood 04/04/2023 2:29 PM CDT 04/04/2023 2:34 PM CDT us Jazz DEL ANGEL LAB BLOOD ORDERABLES Final Result Performing Organization Address [facility] Co de Phone Number [facility] [address] [place] [address] * (ABNORMAL) Hemoglobin A1c (03/13/2023 10:57 AM CDT) Hgb A1C 8.3(H) 4.0 - 5.6 % [facility] Comment:Testing performed by : [address] [address] Estimated Average Glucose 192 mg/dL [facility] Comment: The ADA recommends reporting an estimated Average Glucose (eAG) with all Hemoglobin A1c results using the equation derived from a study of 507 normal and diabetic adults. Minority populations were underrepresented and children were not included. (Diabetes Care 31:3566-2045, 2008). The eAG is not equivalent to a fasting glucose. Testing performed by: [address] [address] Blood 03/13/2023 10:5 7 AM CDT 03/13/2023 11:09 AM CDT us Bennie Badillo DO LAB BLOOD ORDERABLES Fin al Result Performing Organization Address [facility] Co de Phone Number [facility] [address] [place] [address] * (ABNORMAL) Lipid panel (03/13/2023 10:57 AM [...] last revised on 2018. Testing performed by: [address] [place]., [address] Triglycerides 337(H) <=149 mg/dL [facility] Comment: Interpretive [...] last revised on 2018. Testing performed by: [address] [address] HDL 32(L) >=40 mg/dL [facility] Comment: Interpretive [...] last revised on 2018. Testing performed by: [address] [address] LDL, calculated 49 <=129 mg/dL [facility] Comment: [...] last revised on 2018. Testing performed by: [address] [address] Non-HDL Cholesterol 116 mg/dL [facility] Comment: Interpretive [...] last revised on 2018. Testing performed by: [address] [address] Chol/HDL ratio 5 [facility] Comment:Testing performed by : [address] [address] Blood 03/13/2023 10:5 7 AM CDT 03/13/2023 11:11 AM CDT us Bennie Badillo DO LAB BLOOD ORDERABLES Fin al Result [facility] [address] [facility] Department of Laboratories [place], [place] [id number] * PSA screen (09/22/2022 1:33 PM PROOF PRESS OPERATOR) PSA-Total 0.60 <=3.90 ng/mL [facility] Comment: Interpretive [...] last revised 22. Blood 09/22/2022 1:33 PM PROOF PRESS OPERATOR 09/22/2022 2:12 PM PROOF PRESS OPERATOR Result [facility] Bennie Badillo DO LAB BLOOD ORDERABLES Fin al Result Performing Organization Address [facility] de Phone Number [facility] [address] [place] [address] * (ABNORMAL) Albumin Creatinine Ratio, Urine (09/22/2022 1:22 PM PROOF PRESS OPERATOR) Albumin Ur 47.2 mg/L [facility] Comment: Interpretive Data No reference range established. Current interpretive data was last revised 2019. Creatinine Ur 156.0 mg/dL [facility] Comment: Interpretive Data No reference range established. Current interpretive data was last revised 2019. Albumin Creatinine Ratio, Ur 30(H) 1 - 29 mg/g [facility] Urine 09/22/2022 1:22 PM PROOF PRESS OPERATOR 09/22/2022 1:48 PM PROOF PRESS OPERATOR Bennie Badillo DO LAB URINE ORDERABLES Fin al Result Performing Organization Address [facility] de Phone Number [place] [id number] [place] [address] * Diabetic Eye Exam (12/28/2021) Historical Provider HEALTH MAINTENANCE Final Result * Colonoscopy (06/12/2020) Anatomical Region Laterality Modality Other Historical Provider ENDOSCOPY PROCEDURES Ary l Result from Last 3 Months or Most Recently Relevant to Health Maintenance Insurance AETNA [facility] HMO [facility] Care Teams Scanner Operator Relationship Specialty Start Date End Date Bennie Badillo DO PCP - General Family Medicine 02/15/19
--- OUTSIDE RECORDS SUMMARY | 2025-01-14 11:41 | XMS_ITS | Encounter Summary ---
Author Organization [facility] Facility Care Team Providers Care Automobile Repair Service Estimator Name Role Phone Bennie Badillo DO Primary Care Provider + Encounter Details Date Type Department Care Team (Latest Contact Info) Description 04/28/2016 Orders Only [facility]INCONV ProviderTyler MD [address] [place] [address] Social History Tobacco Use Types Packs/Day Years Used Date Smoking Tobacco: Never Assessed Sex and Gender Information Value Date Recorded Sex Assigned at Not on file Legal Sex Male 9:57 PM CDT Gender Identity Male 11/20/2021 10:00 AM LABORER AMMUNITION ASSEMBLY Sexual Orientation Not on file documented as of this encounter Plan of Treatment Not on file documented as of this encounter Procedures Procedure Name Priority Date/Time Associated Diagnosis Comments SCAN - LABS 04/28/2016 12:00 AM CDT SCAN - LABS 04/28/2016 12:00 AM CDT SCAN - LABS 04/28/2016 12:00 AM CDT SCAN - LABS 04/28/2016 12:00 AM CDT SCAN - LABS 04/28/2016 12:00 AM CDT documented in this encounter Results * SCAN - LABS (04/28/2016 12:00 AM CDT) Narrative 04/28/2016 12:00 AM CDT Ordered by an unspecified provider. [facility] Provider MD Final Res ult * SCAN - LABS (04/28/2016 12:00 AM CDT) Narrative 04/28/2016 12:00 AM CDT Ordered by an unspecified provider. [facility] Provider MD Final Res ult * SCAN - LABS (04/28/2016 12:00 AM CDT) Narrative 04/28/2016 12:00 AM CDT Ordered by an unspecified provider. [facility] Provider MD Final Res ult * SCAN - LABS (04/28/2016 12:00 AM CDT) Narrative 04/28/2016 12:00 AM CDT Ordered by an unspecified provider. [facility] Provider MD Final Res ult * SCAN - LABS (04/28/2016 12:00 AM CDT) Narrative 04/28/2016 12:00 AM CDT Ordered by an unspecified provider. [facility] Provider MD Final Res ult documented in this encounter Visit Diagnoses Not on filedocumented in this encounter Additional Health Concerns Infection Onset Date Last Indicated Resolved Time COVID19 07/22/2020 07/22/2020 08/05/2020 3:06 AM CDT COVID19 07/22/2020 07/22/2020 08/05/2020 3:06 AM CDT COVID: Recovered Comment:Added based on recent COVID infection. 08/05/2020 08/09/2020 12/03/2020 3:[address] COVID: Suspected 11/20/2021 11/20/2021 11/20/2021 11:10 PM LABORER AMMUNITION ASSEMBLY documented as of this encounter Care Teams Automobile Repair Service Estimator Relationship Specialty Start Date End Date Bennie Badillo DO PCP - General Family Medicine 02/15/19 documented as of this encounter
--- OUTSIDE RECORDS SUMMARY | 2025-01-14 11:41 | XMS_ITS | Clinical Summary ---
Author Organization [facility] Address [facility] [place] [address] Care Team Providers Care Ore Sampler Name Role Phone Bennie Nicholas DO Primary Care Provider [phone] Social History Tobacco Use Types Packs/Day Years Used Date Smoking Tobacco: Never Assessed Sex and Gender Information Value Date Recorded Sex Assigned at Not on file Legal Sex Male 8:06 PM CDT Gender Identity Not on file Sexual Orientation Not on file Plan of Treatment Health Maintenance Due Date Last Done Comments Colorectal Cancer Screening Colonoscopy (10 Years) 1969 Annual Physical 1972 Hepatitis C 1987 DTaP, Tdap and Td Vaccines ( 1 - Tdap) 1988 Hepatitis B Vaccines (1 of 3 - 19+ 3-dose series) 1988 Zoster Vaccines (1 of 2) 2019 COVID-19 Vaccine (2023-2 5 season) 2024 Influenza Adult (#1) 2024 Meningococcal B Vaccine Aged Out No l onger eligible based on patient's age to complete this topic Meningococcal Vaccine Aged Out No andreia abimael eligible based on patient's age to complete this topic Pneumococcal Vaccine: Pediat rics (0 to 5 Years) and At-Risk Patients (6 to 64 Years) Aged Out No longer eligible b ased on patient's age to complete this topic RSV Immunizations Under 20 Months Aged Out No longer eligible based on patient's age to complete this topic Care Teams Ore Sampler Relationship Specialty Start Date End Date Bennie Nicholas DO PCP - General 10/24/11
[2025-01-14 11:48] VITALS: BP 141/87; PULSE 81; RESP 20; TEMP 36.5; O2SAT 100
--- NOTE | 2025-01-14 12:06 | ED_ITS ---
HPI - Fall General Chief Complaint: Fall Stated Complaint: RT Ankle / LT Wrist Pain Time Seen by Provider: 01/14/25 12:43 Source: patient and RN notes reviewed Mode of arrival: ambulatory Limitations: no limitations History of Present Illness HPI Narrative: 54-year-old male presents with concern for fall injury. He reports he fell this morning while walking his dog, rolling his ankle in hurting his left wrist. He reports he has been using crutches. He reports lateral ankle pain and dorsal wrist pain. MD complaint: fall Related Data Home Medications ?Medication ?Instructions ?Recorded ?Confirmed ?Last Taken ?Type dapagliflozin propanediol 5 mg 5 mg PO DAILY 06/07/24 06/07/24 Unknown History tablet (Farxiga) ipratropium 20 mcg-albuterol 100 1 puff inhalation PRN PRN 06/07/24 06/07/24 Unknown History mcg/actuation mist for inhalation Shortness Of Breath Or Wheezing (Combivent Respimat) metformin 500 mg tablet 500 mg PO BID 06/07/24 06/07/24 Unknown History montelukast 10 mg tablet 10 mg PO HS 06/07/24 06/07/24 Unknown History triamterene 37.5 1 cap PO DAILY 06/07/24 06/07/24 Unknown History mg-hydrochlorothiazide 25 mg capsule valsartan 80 mg tablet 80 mg PO DAILY 06/07/24 06/07/24 Unknown History Allergies Allergy/AdvReac Type Severity Reaction Status Date / Time Sulfa (Sulfonamide AdvReac Mild Hives Verified 06/07/24 08:38 Antibiotics) LACTOSE INTOLERANT AdvReac Intermediate Gastrointestinal Uncoded 06/07/24 08:38 Upset Review of Systems Review of Systems: CONSTITUTIONAL: Denies malaise, chills, sweats, or fever. SKIN: Denies rash or itching, open skin, laceration, abrasion, redness, warmth MUSCULOSKELETAL: Reports left wrist pain and right ankle pain and swelling NEUROLOGIC: Denies numbness, weakness All systems reviewed & are unremarkable except as noted in HPI and below PMFSH Comments At time of signature, agree with nursing past medical, surgical, social and family history. There is no relevant family history pertinent to the presenting complaint Exam Narrative: GENERAL: Well-appearing, well-nourished, and in no acute distress. HEAD: Normocephalic, atraumatic. EYES: PERRLA, conjunctivae clear NECK: Supple. CHEST: Speaks in full sentences. No respiratory distress. HEART: Regular rate and rhythm. Normal and equal peripheral pulses. EXTREMITIES: Right ankle, digits have grossly normal strength and sensation, grossly normal range of motion. Mild lateral edema without ecchymosis. 5/5 strength with digit flexion and extension. Normal sensation with sensitivity to light touch and pain. Lateral tenderness. No open wounds, no skin tenting, no devitalized tissue or atrophy, no trophic changes, no obvious deformity, alignment normal, nearby joints and structures intact. Distal pulses palpable and equal bilaterally, skin warm, dry, pink. Capillary refill less than 3 seconds. Left wrist, hand, digits have grossly normal strength and sensation, grossly normal range of motion. No edema or ecchymosis Normal sensation with sensitivity to light touch and pain. No point tenderness. No open wounds, no skin tenting, no devitalized tissue or atrophy, no trophic changes, no obvious deformity, alignment normal, nearby joints and structures intact. Distal pulses palpable and equal bilaterally, skin warm, dry, pink. Capillary refill less than 3 seconds. SKIN: Warm, dry, no rash. NEURO: Alert and oriented x3. PSYCH: Normal mood and affect Course Course Emergency Course: Patient is aware of diagnosis, understands and agrees to treatment plan. Anticipatory guidance given. Patient agrees to follow-up as directed and is aware of reasons to seek care at the emergency department. Portions of this record may have been created with voice recognition software Level of Care: Express Care Visit Vital Signs Vital signs: Vital Signs Temperature 97.7 F 01/14/25 11:48 Pulse Rate 81 01/14/25 11:48 Respiratory Rate 20 01/14/25 11:48 Blood Pressure 141/87 H 01/14/25 11:48 Pulse Oximetry 100 01/14/25 11:48 Oxygen Delivery Room Air 01/14/25 11:48 Temperature 97.7 F 01/14/25 11:48 Pulse Rate 81 01/14/25 11:48 Respiratory Rate 20 01/14/25 11:48 Blood Pressure 141/87 H 01/14/25 11:48 Pulse Oximetry 100 01/14/25 11:48 Oxygen Delivery Room Air 01/14/25 11:48 Reviewed. MDM - Fall MDM Narrative Medical decision making narrative: Patients injury and pain is consistent with musculoskeletal etiology. No signs of neurological or vascular compromise on exam. Compartments and tissues are soft without signs of compartment syndrome. Pain is felt appropriate for further evaluation on an outpatient basis. Imaging Data My impression: Images reviewed, interpreted by radiologist, agree, see report. Radiologist's impression: HISTORY: fall this morning/ulnar side pain COMPARISON: None TECHNIQUE: 3 views of the right ankle were performed FINDINGS: No acute fracture or dislocation. No significant soft tissue swelling. The ankle mortise is preserved. Bone mineralization is age advanced. Ossification of the insertion of the Achilles tendon is noted IMPRESSION: Degenerative disease without acute fracture. HISTORY: fall today/lateral pain COMPARISON: None TECHNIQUE: 3 views of the left wrist were performed. FINDINGS: No acute fracture is identified. The carpal arcs are intact. Mild radiocarpal joint space narrowing with sclerosis of the distal radius is present. The remaining visualized joint spaces are otherwise preserved. No significant soft tissue swelling is noted. No radiopaque foreign body is identified. IMPRESSION: Degenerative disease, without acute fracture. Critical Care Time Critical Care Time Critical Care Time: No Discharge Plan Discharge Clinical Impression: Left wrist sprain, Right ankle sprain Patient Disposition: Home, Self-Care Condition: Stable Instructions: Ankle Sprain (ED), Wrist Sprain (ED) Additional Instructions: Avoid activities that cause pain until the pain subsides. Ice to the area 20-30 minutes 4-6 times a day Elevate above heart Elastic wrap as directed for comfort for the next 5-7 days Crutches as directed if needed Tylenol for lesser pain Ibuprofen regularly for the next 2-3 days for the inflammation Follow up with your primary care provider if the condition is not improving within 1 week. If the condition worsens with numbness, tingling, decrease sensation with weakness seek treatment in the emergency room immediately. Patient Language: Welsh Prescriptions: No Action metformin 500 mg tablet 500 mg PO BID valsartan 80 mg tablet 80 mg PO DAILY triamterene-hydrochlorothiazid 37.5-25 mg capsule 1 cap PO DAILY montelukast 10 mg tablet 10 mg PO HS dapagliflozin propanediol [Farxiga] 5 mg tablet 5 mg PO DAILY Combivent Respimat 20-100 mcg/actuation mist 1 puff INHALATION PRN PRN (Reason: Shortness Of Breath Or Wheezing) prednisone 50 mg tablet 50 mg PO DAILY Qty: 5 0RF methocarbamol 500 mg tablet 500 mg PO TID Qty: 14 0RF Follow-up/Referrals: [place],Bennie Shaikh MD [Primary Care Provider] - Michael Gee MD [Physician] - Time of Disposition: 12:42
== END 2025-01-14 12:54 | disposition home or self-care (01) ==
PROVIDERS: Emergency Provider Nurse Practitioner; PCP Family Medicine
DX: S93.401A Sprain of unspecified ligament of right ankle, initial encounter (principal); S63.502A Unspecified sprain of left wrist, initial encounter; W19.XXXA Unspecified fall, initial encounter; Y93.K1 Activity, walking an animal; I10 Essential (primary) hypertension; E78.00 Pure hypercholesterolemia, unspecified; K21.9 Gastro-esophageal reflux disease without esophagitis; E11.9 Type 2 diabetes mellitus without complications
CPT/HCPCS: 73110; 73610; 99214; G0463

== ENCOUNTER 2025-08-01 15:47 | Emergency (ER) | payer OTHER, SELFPAY ==
[2025-08-01 16:20] VITALS: BP 147/85; PULSE 88; RESP 18; TEMP 36.6; O2SAT 99
--- NOTE | 2025-08-01 16:44 | ED_ITS ---
HPI - Extremity Injury (Lower) General Chief Complaint: Extremity Injury, Lower Stated Complaint: right toe Time Seen by Provider: 08/01/25 16:20 Source: patient, family and RN notes reviewed Mode of arrival: ambulatory Limitations: no limitations History of Present Illness HPI Narrative: 54-year-old male Presents Express Care complaining of injury to right 5th toe. Patient reports he might have injured in a month ago however was never evaluated in [facility] on its own. The other day patient says he accidentally struck it on a plastic laundry basket causing bruising. Patient has any falls or any other injuries. Patient denies any numbness, tingling. Patient denies taking any blood thinners. Patient's has a history diabetes. Related Data Home Medications ?Medication ?Instructions ?Recorded ?Confirmed ?Last Taken ?Type dapagliflozin propanediol 5 mg 5 mg PO DAILY 06/07/24 06/07/24 Unknown History tablet (Farxiga) ipratropium 20 mcg-albuterol 100 1 puff inhalation PRN PRN 06/07/24 06/07/24 Unknown History mcg/actuation mist for inhalation Shortness Of Breath Or Wheezing (Combivent Respimat) metformin 500 mg tablet 500 mg PO BID 06/07/2406/07 Unknown History montelukast 10 mg tablet 10 mg PO HS 06/07/24 4 Unknown History triamterene 37.5 1 cap PO DAILY 06/07/2405/25 Unknown History mg-hydrochlorothiazide 25 mg capsule valsartan 80 mg tablet 80 mg PO DAILY 06/07/2405/25 Unknown History Allergies Allergy/AdvReac Type Severity Reaction Status Date / Time Sulfa (Sulfonamide AdvReac Mild Hives Verified 08/01/25 16:20 Antibiotics) LACTOSE INTOLERANT AdvReac Intermediate Gastrointestinal Uncoded 06/07/24 08:38 Upset Review of Systems Review of Systems: CONSTITUTIONAL: Denies fever, chills, or sweats. EYES: Denies visual changes, redness, or discharge. ENT: Denies rhinorrhea, congestion, sore throat, or otalgia. CARDIOVASCULAR: Denies chest pain, palpitations, or edema. RESPIRATORY: Denies cough or dyspnea. GASTROINTESTINAL: Denies abdominal pain, nausea, vomiting, or diarrhea. GENITOURINARY: Denies dysuria or hematuria. SKIN: Denies rash, wound, or itching. MUSCULOSKELETAL: Denies back pain, joint pain, or myalgia. Positive for right 5th toe, bruising, injury and swelling NEUROLOGIC: Denies headache, numbness, or weakness. PSYCHIATRIC: Denies anxiety or depression. All other systems reviewed are negative, except as documented in HPI. PMFSH Comments At the time of my signature, I reviewed and agree with the nursing past medical, surgical, social, and family history. There is no relevant family history pertinent to the patient complaint. Exam Narrative: GENERAL: This is a well-nourished, well-developed adult, in no apparent distress. They are non ill-appearing, nontoxic appearing. HEAD: normocephalic, atraumatic. EYES: Sclera clear/white. Vision is grossly intact. Conjunctiva normal. Extraocular movement intact. EARS: External ears normal Hearing grossly intact. NOSE: External nose normal THROAT: Mucous membranes moist NECK: Neck supple CARDIOVASCULAR: Regular rate and rhythm RESPIRATORY: Respiratory rate normal, respiratory effort nonlabored, no respiratory distress NEURO: awake, alert, and oriented to person, place and time. There were no obvious focal neurologic abnormalities. EXTREMITIES: Right foot: No obvious deformity, redness. Mild bruising swelling to right 5th digit. Normal range of motion. Is tender to the proximal 5th digit. Capillary refill less than 3 seconds. Right pedal Pulse 2 +palpable. Normal sensation. Neurovascular status intact distal injury. Patient able to wiggle his toes. BACK: Nontender without deformity. Course Course Emergency Course: Portions of this record may have been created with voice recognition software Level of Care: Express Care Visit Vital Signs Vital signs: Vital Signs Temperature 97.9 F 08/01/25 16:20 Pulse Rate 88 08/01/25 16:20 Respiratory Rate 18 08/01/25 16:20 Blood Pressure 147/85 H 08/01/25 16:20 Pulse Oximetry 99 08/01/25 16:20 Oxygen Delivery Room Air 08/01/25 16:20 Temperature 97.9 F 08/01/25 16:20 Pulse Rate 88 08/01/25 16:20 Respiratory Rate 18 08/01/25 16:20 Blood Pressure 147/85 H 08/01/25 16:20 Pulse Oximetry 99 08/01/25 16:20 Oxygen Delivery Room Air 08/01/25 16:20 Reviewed MDM - Extremity Injury (Lower) MDM Narrative Medical decision making narrative: Informed patient today we do not have x-ray capabilities. No obvious deformity. There is mild bruising to the proximal medial 5th toe. Cannot confidently exclude fracture any bony findings based off injury. Offered patient transfer to another [facility] or elsewhere with x-ray capabilities for further imaging and diagnostics and patient declined. Patient would like to do conservative therapy, patient already has a postop shoe. Discussed rice therapy. Advised patient any point he feels like it is not getting better would like re-evaluated for imaging or fits not improving after 7-10 days to be re- evaluated here by his PCP. Patient verbalized understanding. Discussed physical exam findings. Advised supportive measures and signs/symptoms to go to the ER. Pt is appropriate for outpt treatment and f/u. Differential Diagnosis Differential diagnosis: Likely fracture of toe and other (Toe contusion, toe sprain) Critical Care Time Critical Care Time Critical Care Time: No Discharge Plan Discharge Clinical Impression: Contusion of fifth toe, right Qualifiers: Encounter type: initial encounter Qualified Code(s): S90.121A - Contusion of right lesser toe(s) without damage to nail, initial encounter Patient Disposition: Home Condition: Stable Instructions: Foot Contusion (ED) Additional Instructions: We do not have x-ray today slight cannot confirm it there is not a fracture occurred from your injury. It may just be a toe contusion. Rest and elevate the leg; bear weight as tolerated Apply ice 15-20 minute intervals several times a day Wear the postop shoe when bearing weight. You may take ibuprofen 600 mg to 800 mg every 6-8 hours. Do not exceed more than 800 mg of ibuprofen per dose. Do not exceed more than 3200 mg ibuprofen in a day. You may take up to 1000 mg Tylenol every 6-8 hours. Do not exceed 1000 mg per dose, do exceed more than 4000 mg of Tylenol in a day. If you take meloxicam do not take ibuprofen or any other NSAIDs. Follow up with your primary care provider or orthopedist in 1 week especially if pain persist. Any point if you feels like it is not getting better you may get re-evaluated and potentially get imaging performed or call your doctor and get an outpatient image done. Patient Language: Montenegrin Prescriptions: No Action metformin 500 mg tablet 500 mg PO BID valsartan 80 mg tablet 80 mg PO DAILY triamterene-hydrochlorothiazid 37.5-25 mg capsule 1 cap PO DAILY montelukast 10 mg tablet 10 mg PO HS dapagliflozin propanediol [Farxiga] 5 mg tablet 5 mg PO DAILY Combivent Respimat 20-100 mcg/actuation mist 1 puff INHALATION PRN PRN (Reason: Shortness Of Breath Or Wheezing) prednisone 50 mg tablet 50 mg PO DAILY Qty: 5 0RF methocarbamol 500 mg tablet 500 mg PO TID Qty: 14 0RF Follow-up/Referrals: [place],Bennie Shaikh MD [Primary Care Provider] Time of Disposition: 16:42
== END 2025-08-01 16:44 | disposition home or self-care (01) ==
PROVIDERS: PCP Family Medicine
DX: S90.121A Contusion of right lesser toe(s) without damage to nail, initial encounter (principal); W22.8XXA Striking against or struck by other objects, initial encounter; E11.9 Type 2 diabetes mellitus without complications; Z79.84 Long term (current) use of oral hypoglycemic drugs; I10 Essential (primary) hypertension; E78.00 Pure hypercholesterolemia, unspecified; K21.9 Gastro-esophageal reflux disease without esophagitis
CPT/HCPCS: 99212; G0463